=== PATIENT | female | born 1960 | race Caucasian/White ===

== ENCOUNTER 2016-12-14 17:22 | Emergency (ER) | payer OTHER ==
[2016-12-14 17:26] VITALS: BP 145/71; BMI 22.3
--- NOTE | 2016-12-14 17:51 | DR.GENAD ---
HPI - PCP Primary Care Physician: PATRICA - Complaint/Symptoms Chief Complaint Doctors Comments: Patient states that she is depressed and wants to go to [facility]. She denies being homocidal or suidical. She has been living int he a motel for the past week. She is no longer seeing her psychiatrist since he sold his practice but has been seeing the physician extenders of the person who took over the practice. Chief Complaint:: PT. STATES SHE HAS BEEN DEPRESSED AND WOULD LIKE TO GO TO [facility] IN [place]. PT. STATES IT HAS BEEN OVER A YEAR SINCE SHE HAS BEEN TO [facility] & SHE WAS SENT THERE FOR DEPRESSION. The office she presently goes to is not not concerned about her mental health but in seeing a certain number of patients daily. I discussed with patient the option of outpatient management at [facility] but she wants in patient care for depression. - Source History Provided: Patient - Mode of Arrival Mode of Arrival: Ambulatory - Timing Onset of Chief Complaint: 12/12/16 PMH - PMH Past Medical History: Yes Past Medical History: Anxiety, CHF, COPD, Coronary Artery Disease, Depression, [place] Past Surgical History: Yes Surgical History: Angioplasty/Stents, CABG/Valve Surgery, Ortho Surgery - Family History History of Family Medical Conditions: Yes Family Medical History: [place], Hypertension - Social History Does patient currently use any type of tobacco product: Yes Have you used tobacco products in the last 12 months: Yes Type of Tobacco Use: Cigarettes Does any household member use tobacco: No Alcohol Use: None Do you use any recreational Drugs:: No Lives With: Friend Lives Where: Home - infectious screening In the last 2 months have you had wt loss of >10#?: NO Have you had fever, night sweats or hemotysis?: No Have you traveled outside the country in the last 6 months?: No Isolation: Standard ROS - Review of Systems Constitutional: No Symptoms Reported Eyes: No Symptoms Reported ENTM: No Symptoms Reported Respiratoy: No Symptoms Reported Cardiovascular: No Symptoms Reported Gastrointestinal/Abdominal: No Symptoms Reported Genitourinary: No Symptoms Reported Neurological: No Symptoms Reported Musculoskeletal: No Symptoms Reported Integumentary: No Symptoms Reported Hematologic/Lymphatic: No Symptoms Reported Endocrine: No Symptoms Reported Psychiatric: See HPI, Depression. negative: Hallucinations, Excessive crying, Suicidal PE - Vital Signs Vitals: Temperature 97.9 F Pulse Rate 84 Respiratory Rate 16 Blood Pressure [Left Arm] 135/68 Blood Pressure [Right Arm] 128/70 Blood Pressure 145/71 O2 Sat by Pulse Oximetry 98 - General General Appearance: Alert - Head Head Exam: Normal Inspection - Eyes Eye exam: Normal Appearance, PERRL, EOMI - ENT ENT Exam: Normal Exam External Ear Exam: Normal External Inspection TM/Canal Exam: Bilateral Normal Nose Exam: Normal Nose Exam Mouth Exam: Normal Inspection Throat Exam: Normal Inspection - Neck Neck Exam: Normal Inspection, Full ROM - Chest Chest Inspection: Normal Inspection - Respiratory Respiratory Exam: Normal Lung Sounds Bilat Respiratory Exam: Bilateral Clear to Auscultation - Cardiovascular Cardiovascular Exam: Regular Rate, Normal Rhythm - Abdominal Exam Abdominal Exam: Normal Inspection Abdominal Tenderness: negative: RUQ, RLQ, LUQ, LLQ, Epigastrium, Suprapubic, Diffuse, Mild, Moderate, Severe, Other - Extremities Extremities Exam: Normal Inspection - Back Back Exam: Normal Inspection - Neurologic Neurological Exam: Alert, Oriented X3, CN II-XII Intact - Psychiatric Psychiatric Exam: Normal Affect - Skin Skin Exam: Warm, Dry, Intact Course - Treatment Treatment: Mental Health contacted came in to evaluate patient. Patient agreed to outpatient counseling; appointment given by crisis counselor. ROR - Labs Reviewed Laboratory Results Reviewed?: Yes (Urine positive for benzodiazepines and barbiturates) Result Diagrams: 12/14/16 18:30 12/14/16 18:30 Laboratory: WBC 5.6 X10^3/uL (3.6-10.0) 12/14/16 18:30 RBC 3.94 X10^6/uL (3.5-5.4) 12/14/16 18:30 Hgb 12.5 g/dL (12.0-16.0) 12/14/16 18:30 Hct 36.7 % (36.0-47.0) 12/14/16 18:30 MCV 93.1 fL (80.0-100.0) 12/14/16 18:30 MCH 31.8 pg (27.0-34.0) 12/14/16 18:30 MCHC 34.1 g/dL (33.0-35.0) 12/14/16 18:30 RDW 13.9 % (11.6-16.5) 12/14/16 18:30 Plt Count 194 X10^3/uL (150.0-450.0) 12/14/16 18:30 MPV 7.9 fL (7.4-11.0) 12/14/16 18:30 Neut % 34.4 % (42.0-75.0) L 12/14/16 18:30 Lymph % 56.2 % (21.0-51.0) H 12/14/16 18:30 [place] % 6.6 % (0.0-13.0) 12/14/16 18:30 Eos % 2.5 % (0.9-2.9) 12/14/16 18:30 Baso % 0.3 % (0.2-1.0) 12/14/16 18:30 Neut # 1.9 x10^3/uL (2.2-4.8) L 12/14/16 18:30 Lymph # 3.1 X10^3/uL (1.3-2.9) H 12/14/16 18:30 [place] # 0.4 x10^3/uL (0.3-0.8) 12/14/16 18:30 Eos # 0.1 x10^3/uL (0.0-0.2) 12/14/16 18:30 Baso # 0.0 X10^3/uL (0.0-0.1) 12/14/16 18:30 Absolute Nucleated RBC 0.1 /100WBC 12/14/16 18:30 Sodium 146 mmol/L (136-145) H 12/14/16 18:30 Corrected Sodium TNP 12/14/16 18:30 Potassium 3.4 mmol/L (3.5-5.1) L 12/14/16 18:30 Chloride 108 mmol/L (98-107) H 12/14/16 18:30 Carbon Dioxide 29.6 mmol/L (21-32) 12/14/16 18:30 BUN 9 mg/dL (7-18) 12/14/16 18:30 Creatinine 0.89 mg/dL (0.55-1.02) 12/14/16 18:30 Est GFR (MDRD) Af Amer > 60 (>60) 12/14/16 18:30 Est GFR (MDRD) Non-Af > 60 (>60) 12/14/16 18:30 Glucose 110 mg/dL (65-99) H 12/14/16 18:30 Calcium 8.6 mg/dL (8.5-10.1) 12/14/16 18:30 Corrected Calcium TNP 12/14/16 18:30 Total Bilirubin 0.20 mg/dL (0.2-1.0) 12/14/16 18:30 AST 20 Units/L (15-37) 12/14/16 18:30 ALT 24 Units/L (12-78) 12/14/16 18:30 Alkaline Phosphatase 122 Units/L (46-116) H 12/14/16 18:30 Total Protein 7.6 g/dL (6.4-8.2) 12/14/16 18:30 Albumin 3.6 g/dL (3.4-5.0) 12/14/16 18:30 Globulin 4.0 g/dL (2.5-4.5) 12/14/16 18:30 Albumin/Globulin Ratio 0.9 Ratio (1.1-2.1) L 12/14/16 18:30 Specimen Type Clean catch urine 12/14/16 19:39 Urine Color Yellow (YELLOW) 12/14/16 19:39 Urine Appearance Clear (CLEAR) 12/14/16 19:39 Urine pH 6.0 (5.0 - 8.0) 12/14/16 19:39 Ur Specific [place] 1.020 (1.000-1.030) 12/14/16 19:39 Urine Protein 2+ (NEGATIVE) 12/14/16 19:39 Urine Glucose (UA) Negative (NEGATIVE) 12/14/16 19:39 Urine Ketones Negative (NEGATIVE) 12/14/16 19:39 Urine Occult Blood Negative (NEGATIVE) 12/14/16 19:39 Urine Nitrite Negative (NEGATIVE) 12/14/16 19:39 Urine Bilirubin Negative (NEGATIVE) 12/14/16 19:39 Urine Urobilinogen Normal (NORMAL) 12/14/16 19:39 Ur Leukocyte Esterase 1+ (NEGATIVE) 12/14/16 19:39 Urine RBC None seen /HPF (NEGATIVE) 12/14/16 19:39 Urine WBC 02 - 05 /HPF (NEGATIVE) 12/14/16 19:39 Ur Squamous Epith Cells Moderate /HPF (NEGATIVE) 12/14/16 19:39 Ur Renal Epithelial Cell Rare /HPF (NEGATIVE) 12/14/16 19:39 Calcium Oxalate Crystal Moderate /HPF (NEGATIVE) 12/14/16 19:39 Amorphous Sediment Trace /HPF (NEGATIVE) 12/14/16 19:39 Urine Bacteria Negative /HPF (NEGATIVE) 12/14/16 19:39 Ur Culture Indicated? No/not indicated 12/14/16 19:39 Salicylates 5.4 mg/dL (2.8-20) 12/14/16 18:30 Urine Opiates Screen Negative (NEG=<300) 12/14/16 19:39 Urine Methadone Screen Negative (NEG=<300) 12/14/16 19:39 Acetaminophen < 10.0 ug/mL (10-30) L 12/14/16 18:30 Ur Barbiturates Screen Positive (NEG=<200) A 12/14/16 19:39 Ur Phencyclidine Scrn Negative (NEG=<25) 12/14/16 19:39 Ur Amphetamines Screen Negative (NEG=<1000) 12/14/16 19:39 U Benzodiazepines Scrn Positive (NEG=<200) A 12/14/16 19:39 Urine Cocaine Screen Negative (NEG=<300) 12/14/16 19:39 U Marijuana (THC) Screen Negative (NEG=<50) 12/14/16 19:39 Ethyl Alcohol mg/dL < 3 mg/dL (0-19.9) 12/14/16 18:30 - Diagnosis Discharge Problem: Depression (emotion) Qualifiers: Depression Type: unspecified Qualified Code(s): F32.9 - Major depressive disorder, single episode, unspecified - Discharge Plan Condition: Stable - Follow ups/Referrals Follow ups/Referrals: MILLY BURCIAGA [Primary Care Provider] - 3 days - Instructions
[2016-12-14 18:55] LABS: BASOPHILS % (AUTO) 0.3 % (0.2-1.0); EOSINOPHILS # (AUTO) 0.1 x10^3/uL (0.0-0.2); EOSINOPHILS % (AUTO) 2.5 % (0.9-2.9); HEMATOCRIT 36.7 % (36.0-47.0); HEMOGLOBIN 12.5 g/dL (12.0-16.0); LYMPHOCYTES # (AUTO) 3.1 X10^3/uL (1.3-2.9); LYMPHOCYTES % (AUTO) 56.2 % (21.0-51.0); MEAN CORPUSCULAR HEMOGLOBIN 31.8 pg (27.0-34.0); MEAN CORPUSCULAR HGB CONC 34.1 g/dL (33.0-35.0); MEAN CORPUSCULAR VOLUME 93.1 fL (80.0-100.0); MEAN PLATELET VOLUME 7.9 fL (7.4-11.0); MONOCYTES # (AUTO) 0.4 x10^3/uL (0.3-0.8); MONOCYTES % (AUTO) 6.6 % (0.0-13.0); NEUTROPHILS # (AUTO) 1.9 x10^3/uL (2.2-4.8); NEUTROPHILS % (AUTO) 34.4 % (42.0-75.0); PLATELET COUNT 194 X10^3/uL (150.0-450.0); RED BLOOD COUNT 3.94 X10^6/uL (3.5-5.4); RED CELL DISTRIBUTION WIDTH 13.9 % (11.6-16.5); WHITE BLOOD COUNT 5.6 X10^3/uL (3.6-10.0)
[2016-12-14 19:10] LABS: SALICYLATE 5.4 mg/dL (2.8-20)
[2016-12-14 19:12] LABS: ALANINE AMINOTRANSFERASE 24 Units/L (12-78); ALBUMIN 3.6 g/dL (3.4-5.0); ALKALINE PHOSPHATASE 122 Units/L (46-116); ASPARTATE AMINO TRANSFERASE 20 Units/L (15-37); BLOOD ALCOHOL < 3 mg/dL (0-19.9); BLOOD UREA NITROGEN 9 mg/dL (7-18); CALCIUM 8.6 mg/dL (8.5-10.1); CARBON DIOXIDE 29.6 mmol/L (21-32); CHLORIDE 108 mmol/L (98-107); CREATININE 0.89 mg/dL (0.55-1.02); GLUCOSE 110 mg/dL (65-99); SODIUM 146 mmol/L (136-145); TOTAL PROTEIN 7.6 g/dL (6.4-8.2); eGFR BLACK RACES > 60 (>60); eGFR NON BLACK RACES > 60 (>60)
[2016-12-14 19:15] LABS: ACETAMINOPHEN < 10.0 ug/mL (10-30)
[2016-12-14 20:12] LABS: BILIRUBIN,URINE NEGATIVE (NEGATIVE); BLOOD/HEMOGLOBIN,URINE NEGATIVE (NEGATIVE); GLUCOSE, URINE NEGATIVE (NEGATIVE); KETONES,URINE NEGATIVE (NEGATIVE); LEUKOCYTE ESTERASE ,URINE 1+ (NEGATIVE); NITRITES,URINE NEGATIVE (NEGATIVE); PROTEIN,URINE 2+ (NEGATIVE); UROBILINOGEN,URINE NORMAL (NORMAL)
[2016-12-14 20:13] LABS: APPEARANCE,URINE CLEAR (CLEAR); COLOR,URINE YELLOW (YELLOW)
[2016-12-14 20:34] LABS: RBC,URINE NONE SEEN /HPF (NEGATIVE); SQUAMOUS EPITHELIAL CELL,UR MODERATE /HPF (NEGATIVE)
[2016-12-14 20:35] LABS: AMORPHOUS SEDIMENT,UR TRACE /HPF (NEGATIVE); BACTERIA,URINE NEGATIVE /HPF (NEGATIVE); RENAL EPITHELIAL CELLS,URINE RARE /HPF (NEGATIVE)
[2016-12-14 20:36] LABS: CALCIUM OXALATE CRYSTALS,UR MODERATE /HPF (NEGATIVE)
== END 2016-12-14 21:06 | disposition home or self-care (01) ==
LOC: ER 17:29
DX: F32.89 Other specified depressive episodes (principal)
CPT/HCPCS: 36415; 80053; 80307; 80320; 81001; 85025; 93005; 93010; 99283; 99285; G0434; G6038; G6039; G6040

== ENCOUNTER 2016-12-18 12:41 | Observation (INO) | payer OTHER ==
[2016-12-18 12:49] VITALS: BMI 25.7
--- NOTE | 2016-12-18 12:59 | DR.GENAD ---
HPI - PCP Primary Care Physician: Jaime - HPI Comment HPI Comment: PRECORDIAL CHEST PRESSURE RADIATING TO THE BACK TIMES ONE HOUR. PAIN ASSOCIATED WITH SOB, NAUSEA AND WEAKNESS. NO FEVER. HAVE NON PRODUCTIVE COUGH. TOOK NTG TIMES 2 S/L WITHOUT RELIEF. - Complaint/Symptoms Chief Complaint Doctors Comments: CHEST PAIN FOR ONE HOUR. Chief Complaint:: pt is c/o chest pain that started 45 min ago - Nurses notes reviewed Nurses Notes Review: Yes - Source History Provided: Patient - Mode of Arrival Mode of Arrival: Stretcher - Timing Onset of Chief Complaint: 12/18/16 Came on: Suddenly - Duration Duration: Constant Duration: Hours - Severity Severity: Moderate PMH - PMH Past Medical History: Yes Past Medical History: Anxiety, CHF, COPD, Coronary Artery Disease, Depression, [place] Past Surgical History: Yes Surgical History: Angioplasty/Stents, CABG/Valve Surgery, Ortho Surgery - Family History History of Family Medical Conditions: Yes Family Medical History: [place], Hypertension - Social History Does patient currently use any type of tobacco product: Yes Have you used tobacco products in the last 12 months: Yes Type of Tobacco Use: Cigarettes Does any household member use tobacco: Yes Alcohol Use: None Do you use any recreational Drugs:: No Lives With: Family Lives Where: Home - infectious screening In the last 2 months have you had wt loss of >10#?: NO Have you had fever, night sweats or hemotysis?: No Have you traveled outside the country in the last 6 months?: No Isolation: Standard ROS - Review of Systems Constitutional: Weakness, Fatigue. negative: Chills, Diaphoresis, Fever, Loss of Appetite Eyes: No Symptoms Reported. negative: Eye Pain, Discharge ENTM: No Symptoms Reported. negative: Ear Pain, Nose Pain, Nose Discharge, Nose Congestion, Throat Pain Respiratoy: Non-Productive Cough, Short of Breath. negative: Wheezing, Hemoptysis Cardiovascular: Chest Pain. negative: Edema, Palpitations, Syncope Gastrointestinal/Abdominal: No Symptoms Reported, Nausea. negative: Diarrhea, Vomiting Genitourinary: No Symptoms Reported. negative: Dysuria, Frequency, Hematuria Neurological: Weakness. negative: Headache, Dizziness Musculoskeletal: Muscle Pain Integumentary: No Symptoms Reported Hematologic/Lymphatic: No Symptoms Reported Endocrine: No Symptoms Reported All Other Systems: Reviewed and Negative PE - Vital Signs Vitals: Temperature 98.3 F Pulse Rate 97 Respiratory Rate 20 Blood Pressure [Left Arm] 135/68 Blood Pressure [Right Arm] 128/70 Blood Pressure 143/61 O2 Sat by Pulse Oximetry 98 - General Limitations: No Limitations General Appearance: Alert - Head Head Exam: Normal Inspection - Eyes Eye exam: Normal Appearance - ENT ENT Exam: Normal External Ear Exam External Ear Exam: Normal External Inspection TM/Canal Exam: Bilateral Normal Nose Exam: Normal Nose Exam Mouth Exam: Normal Inspection Throat Exam: Normal Inspection - Neck Neck Exam: Trachea Midline - Chest Chest Inspection: Symmetric Chest Wall Rise - Respiratory Respiratory Exam: Normal Lung Sounds Bilat Respiratory Exam: Bilateral Clear to Auscultation - Cardiovascular Cardiovascular Exam: Regular Rate, Normal Rhythm, Normal Heart Sounds - Abdominal Exam Abdominal Exam: Normal Bowel Sounds, Soft. negative: Tenderness - Extremities Extremities Exam: Normal Inspection - Back Back Exam: Paraspinal Tenderness - Neurologic Neurological Exam: Alert, Oriented X3 - Psychiatric Psychiatric Exam: Normal Affect, Normal Mood - Skin Skin Exam: Normal Color MDM - Differential Diagnosis Differential Diagnosis: CHEST PAIN, PNEUMONIA, PNEUMOTHORAX, PULMONARY EMBOLISM. CHF. Course - Treatment Treatment: SEE ORDERS - Consultation Consultation Comments: DISCUS PATIENT WITH DR. TAVERAS. HE WILL ADMIT PATIENT. - Education/Counseling Education/Counseling: Patient, Education Educated On: Treatment, Diagnosis ROR - Labs Reviewed Laboratory Results Reviewed?: Yes Result Diagrams: 12/18/16 13:22 12/18/16 13:22 Laboratory: WBC 5.4 X10^3/uL (3.6-10.0) 12/18/16 13:22 RBC 4.08 X10^6/uL (3.5-5.4) 12/18/16 13:22 Hgb 12.8 g/dL (12.0-16.0) 12/18/16 13:22 Hct 37.9 % (36.0-47.0) 12/18/16 13:22 MCV 92.8 fL (80.0-100.0) 12/18/16 13:22 MCH 31.3 pg (27.0-34.0) 12/18/16 13:22 MCHC 33.8 g/dL (33.0-35.0) 12/18/16 13:22 RDW 13.9 % (11.6-16.5) 12/18/16 13:22 Plt Count 185 X10^3/uL (150.0-450.0) 12/18/16 13:22 MPV 8.0 fL (7.4-11.0) 12/18/16 13:22 Neut % 57.5 % (42.0-75.0) 12/18/16 13:22 Lymph % 37.6 % (21.0-51.0) 12/18/16 13:22 [place] % 3.8 % (0.0-13.0) 12/18/16 13:22 Eos % 0.7 % (0.9-2.9) L 12/18/16 13:22 Baso % 0.4 % (0.2-1.0) 12/18/16 13:22 Neut # 3.1 x10^3/uL (2.2-4.8) 12/18/16 13:22 Lymph # 2.0 X10^3/uL (1.3-2.9) 12/18/16 13:22 [place] # 0.2 x10^3/uL (0.3-0.8) L 12/18/16 13:22 Eos # 0.0 x10^3/uL (0.0-0.2) 12/18/16 13:22 Baso # 0.0 X10^3/uL (0.0-0.1) 12/18/16 13:22 Absolute Nucleated RBC 0.0 /100WBC 12/18/16 13:22 D-Dimer 1130 ng/mL (0-400) H* 12/18/16 13:22 Sodium 144 mmol/L (136-145) 12/18/16 13:22 Corrected Sodium 145 mmol/L (136-145) 12/18/16 13:22 Potassium 3.6 mmol/L (3.5-5.1) 12/18/16 13:22 Chloride 108 mmol/L (98-107) H 12/18/16 13:22 Carbon Dioxide 27.6 mmol/L (21-32) 12/18/16 13:22 BUN 17 mg/dL (7-18) 12/18/16 13:22 Creatinine 1.08 mg/dL (0.55-1.02) H 12/18/16 13:22 Est GFR (MDRD) Af Amer > 60 (>60) 12/18/16 13:22 Est GFR (MDRD) Non-Af 56 (>60) L 12/18/16 13:22 Glucose 132 mg/dL (65-99) H 12/18/16 13:22 Calcium 9.0 mg/dL (8.5-10.1) 12/18/16 13:22 Corrected Calcium TNP 12/18/16 13:22 Total Bilirubin 0.30 mg/dL (0.2-1.0) 12/18/16 13:22 AST 14 Units/L (15-37) L 12/18/16 13:22 ALT 19 Units/L (12-78) 12/18/16 13:22 Alkaline Phosphatase 110 Units/L (46-116) 12/18/16 13:22 Creatine Kinase 88 Units/L (26-192) 12/18/16 13:22 CK-MB (CK-2) 1.5 ng/mL (0-4.0) 12/18/16 13:22 CK/CKMB % Calc 1.7 % (<4) 12/18/16 13:22 Troponin I < 0.02 ng/mL (0-1.5) 12/18/16 13:22 B-Natriuretic Peptide 147 pg/mL (0-79) H 12/18/16 13:22 Total Protein 7.5 g/dL (6.4-8.2) 12/18/16 13:22 Albumin 3.5 g/dL (3.4-5.0) 12/18/16 13:22 Globulin 4.0 g/dL (2.5-4.5) 12/18/16 13:22 Albumin/Globulin Ratio 0.9 Ratio (1.1-2.1) L 12/18/16 13:22 Specimen Type Clean catch urine 12/18/16 13:52 Urine Color Pale yellow (YELLOW) 12/18/16 13:52 Urine Appearance Clear (CLEAR) 12/18/16 13:52 Urine pH 7.0 (5.0 - 8.0) 12/18/16 13:52 Ur Specific [place] 1.010 (1.000-1.030) 12/18/16 13:52 Urine Protein Negative (NEGATIVE) 12/18/16 13:52 Urine Glucose (UA) Negative (NEGATIVE) 12/18/16 13:52 Urine Ketones Negative (NEGATIVE) 12/18/16 13:52 Urine Occult Blood Negative (NEGATIVE) 12/18/16 13:52 Urine Nitrite Negative (NEGATIVE) 12/18/16 13:52 Urine Bilirubin Negative (NEGATIVE) 12/18/16 13:52 Urine Urobilinogen Normal (NORMAL) 12/18/16 13:52 Ur Leukocyte Esterase Negative (NEGATIVE) 12/18/16 13:52 Urine RBC None seen /HPF (NEGATIVE) 12/18/16 13:52 Urine WBC None seen /HPF (NEGATIVE) 12/18/16 13:52 Ur Squamous Epith Cells Few /HPF (NEGATIVE) 12/18/16 13:52 Urine Bacteria Negative /HPF (NEGATIVE) 12/18/16 13:52 Ur Culture Indicated? No/not indicated 12/18/16 13:52 Urine Opiates Screen Negative (NEG=<300) 12/18/16 13:52 Urine Methadone Screen Negative (NEG=<300) 12/18/16 13:52 Ur Barbiturates Screen Negative (NEG=<200) 12/18/16 13:52 Ur Phencyclidine Scrn Negative (NEG=<25) 12/18/16 13:52 Ur Amphetamines Screen Negative (NEG=<1000) 12/18/16 13:52 U Benzodiazepines Scrn Positive (NEG=<200) A 12/18/16 13:52 Urine Cocaine Screen Negative (NEG=<300) 12/18/16 13:52 U Marijuana (THC) Screen Negative (NEG=<50) 12/18/16 13:52 - XRAY XRAY Interpreted by: Radiologist XRAY Findings: report discuss with patient. - EKG Rhythm: NSR (ekg noted) - Diagnosis Discharge Problem: Chest pain - Discharge Plan Disposition: 09 ADMITTED INPATIENT Condition: Stable - Follow ups/Referrals - Instructions
[2016-12-18] MEDS ORDERED: PEPCID 20 MG IV PREMIX* 20 MG/50 ML BAG IV ONE ×2 (13:11→13:13)
[2016-12-18] MEDS ORDERED: NS 1000 ML 1,000 ML ONE (13:14)
[2016-12-18] MEDS ORDERED: TORADOL 30 MG VIAL IVP ONE (13:18)
[2016-12-18] MEDS ORDERED: TORADOL 30 MG VIAL ONE (13:25)
[2016-12-18] MEDS: NS 1000 ML 1,000 ML IV SCH ×2 (13:34→23:24)
[2016-12-18 13:47] LABS: BASOPHILS % (AUTO) 0.4 % (0.2-1.0); EOSINOPHILS % (AUTO) 0.7 % (0.9-2.9); HEMATOCRIT 37.9 % (36.0-47.0); HEMOGLOBIN 12.8 g/dL (12.0-16.0); LYMPHOCYTES % (AUTO) 37.6 % (21.0-51.0); MEAN CORPUSCULAR HEMOGLOBIN 31.3 pg (27.0-34.0); MEAN CORPUSCULAR HGB CONC 33.8 g/dL (33.0-35.0); MEAN CORPUSCULAR VOLUME 92.8 fL (80.0-100.0); MONOCYTES # (AUTO) 0.2 x10^3/uL (0.3-0.8); MONOCYTES % (AUTO) 3.8 % (0.0-13.0); NEUTROPHILS # (AUTO) 3.1 x10^3/uL (2.2-4.8); NEUTROPHILS % (AUTO) 57.5 % (42.0-75.0); PLATELET COUNT 185 X10^3/uL (150.0-450.0); RED BLOOD COUNT 4.08 X10^6/uL (3.5-5.4); RED CELL DISTRIBUTION WIDTH 13.9 % (11.6-16.5); WHITE BLOOD COUNT 5.4 X10^3/uL (3.6-10.0)
--- NOTE | 2016-12-18 13:50 | RAD ---
Examination: Chest x-ray. Clinical history: Chest pain. Technique: A single portable AP view of the chest was obtained. Comparison: 04/14/2016. Findings: The patient's chin partially obscures visualization of the lung apices bilaterally. There are multiple sternal wires and surgical clips in the mediastinum indicating a prior CABG. A Me diPort type catheter is seen overlying the right hemithorax with the tip terminating in the superior vena cava. A pacemaker/defibrillator device is seen overlying the left hemithorax with the leads te rminating in the right atrium and right ventricle. Monitor leads are seen overlying the chest. The cardiac silhouette appears borderline enlarged. The cardiac silhouette size may be accentuated b y the AP projection. No pneumothorax or pleural effusion is noted. The lungs appear clear. There are postsurgical changes from fusion surgery which are incompletely visualized in the cervical spine. No acute osseous abnormality is noted. Impression: 1. The cardiac silhouette appears borderline enlarged. The cardiac silhouette size may be accentuate d by the AP projection. Reported By:
[2016-12-18 14:05] LABS: BLOOD UREA NITROGEN 17 mg/dL (7-18); CARBON DIOXIDE 27.6 mmol/L (21-32); CHLORIDE 108 mmol/L (98-107); COR NA(FOR HYPERGLY) 145 mmol/L (136-145); CREATININE 1.08 mg/dL (0.55-1.02); GLUCOSE 132 mg/dL (65-99); SODIUM 144 mmol/L (136-145); TROPONIN I < 0.02 ng/mL (0-1.5); eGFR BLACK RACES > 60 (>60); eGFR NON BLACK RACES 56 (>60)
[2016-12-18 14:06] LABS: B-TYPE NATRIURETIC PEPTIDE 147 pg/mL (0-79)
[2016-12-18 14:09] LABS: ALANINE AMINOTRANSFERASE 19 Units/L (12-78); ALBUMIN 3.5 g/dL (3.4-5.0); ALKALINE PHOSPHATASE 110 Units/L (46-116); ASPARTATE AMINO TRANSFERASE 14 Units/L (15-37); CKMB % 1.7 % (<4); CREATINE KINASE 88 Units/L (26-192); CREATINE KINASE MB 1.5 ng/mL (0-4.0); TOTAL PROTEIN 7.5 g/dL (6.4-8.2)
[2016-12-18 14:16] LABS: BILIRUBIN,URINE NEGATIVE (NEGATIVE); BLOOD/HEMOGLOBIN,URINE NEGATIVE (NEGATIVE); GLUCOSE, URINE NEGATIVE (NEGATIVE); KETONES,URINE NEGATIVE (NEGATIVE); LEUKOCYTE ESTERASE ,URINE NEGATIVE (NEGATIVE); NITRITES,URINE NEGATIVE (NEGATIVE); PROTEIN,URINE NEGATIVE (NEGATIVE); UROBILINOGEN,URINE NORMAL (NORMAL)
[2016-12-18 14:40] LABS: APPEARANCE,URINE CLEAR (CLEAR); BACTERIA,URINE NEGATIVE /HPF (NEGATIVE); COLOR,URINE PALE YELLOW (YELLOW); RBC,URINE NONE SEEN /HPF (NEGATIVE); SQUAMOUS EPITHELIAL CELL,UR FEW /HPF (NEGATIVE)
[2016-12-18] MEDS ORDERED: PHENERGAN INJ 25 MG IV ONE (14:52)
[2016-12-18] MEDS ORDERED: DEMEROL INJ IVP ONE (14:52)
[2016-12-18] MEDS ORDERED: DEMEROL INJ ONE (14:53)
[2016-12-18] MEDS ORDERED: PHENERGAN INJ 25 MG ONE (14:54)
[2016-12-18] MEDS ORDERED: NS 100 ML IV 100 ML IV ONE (14:54)
--- NOTE | 2016-12-18 15:48 | CT ---
History: Chest pain and elevated D-dimer Study: CTA chest with contrast. Axial and sagittal and coronal MIPS of the pulmonary arteries were d isplayed. Comparison: March 04 1060 Findings : There is hyperinflation as before with centrilobular emphysema, moderately severe. There is no lung consolidation or pleural effusion. The heart is mildly enlarged status post sternotomy. There are pa cemaker wire leads from the left subclavian vein. The main pulmonary artery measures over 3 centimet ers diameter. No pulmonary embolus is demonstrated. The aorta is unremarkable. The visualized upper abdomen is unremarkable. Impression: 1. No evidence for pulmonary embolus 2. Centrilobular emphysema 3. Cardiomegaly and enlarged central pulmonary arteries suggestive of pulmonary hypertension Reported By:
[2016-12-18] MEDS ORDERED: NITROSTAT SL PRN (18:03)
[2016-12-18] MEDS ORDERED: TORADOL 30 MG VIAL IVP PRN (18:06)
[2016-12-18] MEDS ORDERED: ZOFRAN INJ 4 MG VIAL IVP ONE (18:07)
[2016-12-18 21:47] LABS: CKMB % 1.5 % (<4); CREATINE KINASE 80 Units/L (26-192); CREATINE KINASE MB 1.2 ng/mL (0-4.0); TROPONIN I < 0.02 ng/mL (0-1.5)
[2016-12-19 01:15] VITALS: BP 131/66
== END 2016-12-19 03:10 | disposition left against medical advice (07) ==
LOC: ER 12:41 → OBS 17:59
PROVIDERS: ADMIT Internal Medicine; ATTEND Internal Medicine
DX: R07.2 Precordial pain (principal); R94.31 Abnormal electrocardiogram [ECG] [EKG]; R06.02 Shortness of breath; M54.89 Other dorsalgia; M53.1 Cervicobrachial syndrome; R11.0 Nausea; I25.10 Atherosclerotic heart disease of native coronary artery without angina pectoris; J44.9 Chronic obstructive pulmonary disease, unspecified; I51.7 Cardiomegaly; I27.2 Other secondary pulmonary hypertension; J43.2 Centrilobular emphysema; R74.8 Abnormal levels of other serum enzymes; R94.30 Abnormal result of cardiovascular function study, unspecified
CPT/HCPCS: 36415; 36591; 71010; 71275; 80053; 80307; 81001; 82550; 82553; 83880; 84484; 85025; 85378; 93005; 93010; 94760; 96365; 96367; 96374; 96375; 99284; A4222; S0028; G0378; G0434; J1885; J2175; J2550

== ENCOUNTER 2017-01-13 15:55 | Observation (INO) | payer OTHER ==
[2017-01-13 16:52] LABS: BASOPHILS % (AUTO) 0.6 % (0.2-1.0); EOSINOPHILS # (AUTO) 0.1 x10^3/uL (0.0-0.2); HEMATOCRIT 40.3 % (36.0-47.0); HEMOGLOBIN 13.9 g/dL (12.0-16.0); LYMPHOCYTES # (AUTO) 2.9 X10^3/uL (1.3-2.9); LYMPHOCYTES % (AUTO) 37.7 % (21.0-51.0); MEAN CORPUSCULAR HEMOGLOBIN 32.2 pg (27.0-34.0); MEAN CORPUSCULAR HGB CONC 34.5 g/dL (33.0-35.0); MEAN CORPUSCULAR VOLUME 93.3 fL (80.0-100.0); MEAN PLATELET VOLUME 8.5 fL (7.4-11.0); MONOCYTES # (AUTO) 0.5 x10^3/uL (0.3-0.8); MONOCYTES % (AUTO) 6.3 % (0.0-13.0); NEUTROPHILS # (AUTO) 4.1 x10^3/uL (2.2-4.8); NEUTROPHILS % (AUTO) 54.4 % (42.0-75.0); PLATELET COUNT 193 X10^3/uL (150.0-450.0); RED BLOOD COUNT 4.32 X10^6/uL (3.5-5.4); RED CELL DISTRIBUTION WIDTH 13.9 % (11.6-16.5); WHITE BLOOD COUNT 7.6 X10^3/uL (3.6-10.0)
--- NOTE | 2017-01-13 16:52 | RAD ---
HISTORY: 56-year-old female with chest pain. Study: Single frontal view of the chest. Comparison: CT thorax and chest radiograph December 18, 2016. Findings: Surgical and support devices are stable. The trachea is midline. The cardiac silhouette is staple. No focal consolidation, effusion or pneu mothorax. The bony thorax is unremarkable. IMPRESSION: 1. No acute cardiopulmonary disease. Reported By:
[2017-01-13 16:55] LABS: BILIRUBIN,URINE NEGATIVE (NEGATIVE); BLOOD/HEMOGLOBIN,URINE NEGATIVE (NEGATIVE); GLUCOSE, URINE NEGATIVE (NEGATIVE); KETONES,URINE NEGATIVE (NEGATIVE); LEUKOCYTE ESTERASE ,URINE NEGATIVE (NEGATIVE); NITRITES,URINE NEGATIVE (NEGATIVE); PROTEIN,URINE NEGATIVE (NEGATIVE); UROBILINOGEN,URINE NORMAL (NORMAL)
[2017-01-13 17:04] LABS: APPEARANCE,URINE CLEAR (CLEAR); BACTERIA,URINE TRACE /HPF (NEGATIVE); COLOR,URINE PALE YELLOW (YELLOW); RBC,URINE 0-2 /HPF (NEGATIVE); SQUAMOUS EPITHELIAL CELL,UR FEW /HPF (NEGATIVE)
[2017-01-13 17:09] LABS: BLOOD UREA NITROGEN 8 mg/dL (7-18); CALCIUM 9.2 mg/dL (8.5-10.1); CARBON DIOXIDE 26.2 mmol/L (21-32); CHLORIDE 108 mmol/L (98-107); CREATININE 0.93 mg/dL (0.55-1.02); GLUCOSE 105 mg/dL (65-99); SODIUM 144 mmol/L (136-145); TROPONIN I < 0.02 ng/mL (0-1.5); eGFR BLACK RACES > 60 (>60); eGFR NON BLACK RACES > 60 (>60)
[2017-01-13 17:12] LABS: D DIMER 90.5 ng/mL (0-400)
[2017-01-13 17:13] LABS: ALANINE AMINOTRANSFERASE 46 Units/L (12-78); ALBUMIN 3.6 g/dL (3.4-5.0); ALKALINE PHOSPHATASE 104 Units/L (46-116); ASPARTATE AMINO TRANSFERASE 19 Units/L (15-37); CKMB % 1.8 % (<4); CREATINE KINASE 57 Units/L (26-192); MAGNESIUM 1.9 mg/dL (1.7-2.9); TOTAL PROTEIN 7.6 g/dL (6.4-8.2)
[2017-01-13] MEDS ORDERED: PHENERGAN INJ 25 MG IV ONE (17:58)
[2017-01-13] MEDS ORDERED: DEMEROL INJ IVP ONE (17:58)
--- NOTE | 2017-01-13 18:01 | DR.GENAD ---
HPI - PCP Primary Care Physician: gary - HPI Comment HPI Comment: PRECORDIAL CHEST PAIN NON RADIATING TO THE BACK ASSOCIATED WITH WEAKNESS SOB FOR 6 HOURS. 4 S/L NTG DID NOT RELIEVE. EMS GAVE CHEWABLE ASA 81MG TIMES 4. HAVE CAD S/P STENT PLACEMENT. NO FEVER. - Complaint/Symptoms Chief Complaint Doctors Comments: CHEST PAIN, SOB. Chief Complaint:: patient stated she started having chest pain 6 hours ago. she stated she took 4 nitros and ems gave her 81 mg asa times 4. - Nurses notes reviewed Nurses Notes Review: Yes - Source History Provided: Patient, EMS - Mode of Arrival Mode of Arrival: EMS - Timing Onset of Chief Complaint: 01/13/17 Came on: Suddenly - Duration Duration: Constant Duration: Hours - Severity Severity: Moderate PMH - PMH Past Medical History: Yes Past Medical History: Anxiety, CHF, COPD, Coronary Artery Disease, Depression, [place] Past Surgical History: Yes Surgical History: Angioplasty/Stents, CABG/Valve Surgery, Ortho Surgery - Family History History of Family Medical Conditions: Yes Family Medical History: [place], Hypertension - Social History Does patient currently use any type of tobacco product: No Have you used tobacco products in the last 12 months: No Type of Tobacco Use: None Does any household member use tobacco: No Alcohol Use: None Do you use any recreational Drugs:: No Lives With: Family Lives Where: Home - infectious screening In the last 2 months have you had wt loss of >10#?: NO Have you had fever, night sweats or hemotysis?: No Have you traveled outside the country in the last 6 months?: No Isolation: Standard ROS - Review of Systems Constitutional: No Symptoms Reported, Weakness, Fatigue. negative: Chills, Diaphoresis, Fever, Loss of Appetite Eyes: No Symptoms Reported. negative: Eye Pain, Discharge ENTM: No Symptoms Reported. negative: Ear Pain, Nose Discharge, Nose Congestion , Throat Pain Respiratoy: Non-Productive Cough, Short of Breath. negative: Productive Cough, Wheezing, Hemoptysis Cardiovascular: Chest Pain. negative: Edema, Palpitations, Syncope Gastrointestinal/Abdominal: Nausea. negative: Abdominal Pain, Constipation, Diarrhea, Vomiting Genitourinary: No Symptoms Reported. negative: Dysuria, Frequency, Hematuria Neurological: Headache, Weakness, Dizziness Musculoskeletal: Muscle Pain Integumentary: No Symptoms Reported Hematologic/Lymphatic: Easy Bruising Endocrine: No Symptoms Reported All Other Systems: Reviewed and Negative PE - Vital Signs Vitals: Temperature 98.6 F Pulse Rate 71 Respiratory Rate 18 Blood Pressure [Left Arm] 131/66 Blood Pressure [Right Arm] 128/70 Blood Pressure 162/75 O2 Sat by Pulse Oximetry 98 - General Limitations: No Limitations General Appearance: Alert - Head Head Exam: Normal Inspection - Eyes Eye exam: Normal Appearance - ENT ENT Exam: Normal Oropharynx, Normal External Ear Exam, TM's Normal Bilaterally External Ear Exam: Normal External Inspection TM/Canal Exam: Bilateral Normal Nose Exam: Normal Nose Exam Mouth Exam: Normal Inspection Throat Exam: Normal Inspection - Neck Neck Exam: Trachea Midline. negative: Tenderness, Meningismus, Lymphadenopathy - Chest Chest Inspection: Symmetric Chest Wall Rise. negative: Tenderness - Respiratory Respiratory Exam: Normal Lung Sounds Bilat. negative: Chest Wall Tenderness Respiratory Exam: Bilateral Rhonchi, Lower Rhonchi - Cardiovascular Cardiovascular Exam: Regular Rate, Normal Rhythm, Normal Heart Sounds - Abdominal Exam Abdominal Exam: Normal Bowel Sounds, Soft. negative: Tenderness - Extremities Extremities Exam: Normal Inspection - Back Back Exam: Normal Inspection - Neurologic Neurological Exam: Alert, Oriented X3, CN II-XII Intact, Reflexes Normal. negative: Motor Sensory Deficit - Psychiatric Psychiatric Exam: Normal Affect, Normal Mood - Skin Skin Exam: Normal Color MDM - Differential Diagnosis Differential Diagnosis: CHEST PAIN, CAD, CHEST WALL PAIN, PNEUMONIA, PNEUMOTHORAX, PE Course - Treatment Treatment: SEE ORDERS - Education/Counseling Education/Counseling: Patient, Education Educated On: Treatment, Diagnosis, Needs for Follow Up ROR - Labs Reviewed Laboratory Results Reviewed?: Yes Result Diagrams: 01/14/17 05:45 01/14/17 05:45 Laboratory: WBC 7.6 X10^3/uL (3.6-10.0) 01/13/17 16:10 RBC 4.32 X10^6/uL (3.5-5.4) 01/13/17 16:10 Hgb 13.9 g/dL (12.0-16.0) 01/13/17 16:10 Hct 40.3 % (36.0-47.0) 01/13/17 16:10 MCV 93.3 fL (80.0-100.0) 01/13/17 16:10 MCH 32.2 pg (27.0-34.0) 01/13/17 16:10 MCHC 34.5 g/dL (33.0-35.0) 01/13/17 16:10 RDW 13.9 % (11.6-16.5) 01/13/17 16:10 Plt Count 193 X10^3/uL (150.0-450.0) 01/13/17 16:10 MPV 8.5 fL (7.4-11.0) 01/13/17 16:10 Neut % 54.4 % (42.0-75.0) 01/13/17 16:10 Lymph % 37.7 % (21.0-51.0) 01/13/17 16:10 [place] % 6.3 % (0.0-13.0) 01/13/17 16:10 Eos % 1.0 % (0.9-2.9) 01/13/17 16:10 Baso % 0.6 % (0.2-1.0) 01/13/17 16:10 Neut # 4.1 x10^3/uL (2.2-4.8) 01/13/17 16:10 Lymph # 2.9 X10^3/uL (1.3-2.9) 01/13/17 16:10 [place] # 0.5 x10^3/uL (0.3-0.8) 01/13/17 16:10 Eos # 0.1 x10^3/uL (0.0-0.2) 01/13/17 16:10 Baso # 0.0 X10^3/uL (0.0-0.1) 01/13/17 16:10 Absolute Nucleated RBC 0.1 /100WBC 01/13/17 16:10 INR Target Range - 01/13/17 16:36 INR 0.92 (0.8-1.3) 01/13/17 16:36 PTT 25.5 SECONDS (22.9-36.5) 01/13/17 16:36 PTT Comment - 01/13/17 16:36 D-Dimer 90.5 ng/mL (0-400) 01/13/17 16:10 Sodium 144 mmol/L (136-145) 01/13/17 16:10 Corrected Sodium TNP 01/13/17 16:10 Potassium 3.7 mmol/L (3.5-5.1) 01/13/17 16:10 Chloride 108 mmol/L (98-107) H 01/13/17 16:10 Carbon Dioxide 26.2 mmol/L (21-32) 01/13/17 16:10 BUN 8 mg/dL (7-18) 01/13/17 16:10 Creatinine 0.93 mg/dL (0.55-1.02) 01/13/17 16:10 Est GFR (MDRD) Af Amer > 60 (>60) 01/13/17 16:10 Est GFR (MDRD) Non-Af > 60 (>60) 01/13/17 16:10 Glucose 105 mg/dL (65-99) H 01/13/17 16:10 Calcium 9.2 mg/dL (8.5-10.1) 01/13/17 16:10 Corrected Calcium TNP 01/13/17 16:10 Magnesium 1.9 mg/dL (1.7-2.9) 01/13/17 16:10 Total Bilirubin 0.20 mg/dL (0.2-1.0) 01/13/17 16:10 AST 19 Units/L (15-37) 01/13/17 16:10 ALT 46 Units/L (12-78) 01/13/17 16:10 Alkaline Phosphatase 104 Units/L (46-116) 01/13/17 16:10 Creatine Kinase 57 Units/L (26-192) 01/13/17 16:10 CK-MB (CK-2) 1.0 ng/mL (0-4.0) 01/13/17 16:10 CK/CKMB % Calc 1.8 % (<4) 01/13/17 16:10 Troponin I < 0.02 ng/mL (0-1.5) 01/13/17 16:10 Total Protein 7.6 g/dL (6.4-8.2) 01/13/17 16:10 Albumin 3.6 g/dL (3.4-5.0) 01/13/17 16:10 Globulin 4.0 g/dL (2.5-4.5) 01/13/17 16:10 Albumin/Globulin Ratio 0.9 Ratio (1.1-2.1) L 01/13/17 16:10 Specimen Type Clean catch urine 01/13/17 16:34 Urine Color Pale yellow (YELLOW) 01/13/17 16:34 Urine Appearance Clear (CLEAR) 01/13/17 16:34 Urine pH 7.0 (5.0 - 8.0) 01/13/17 16:34 Ur Specific [place] 1.005 (1.000-1.030) 01/13/17 16:34 Urine Protein Negative (NEGATIVE) 01/13/17 16:34 Urine Glucose (UA) Negative (NEGATIVE) 01/13/17 16:34 Urine Ketones Negative (NEGATIVE) 01/13/17 16:34 Urine Occult Blood Negative (NEGATIVE) 01/13/17 16:34 Urine Nitrite Negative (NEGATIVE) 01/13/17 16:34 Urine Bilirubin Negative (NEGATIVE) 01/13/17 16:34 Urine Urobilinogen Normal (NORMAL) 01/13/17 16:34 Ur Leukocyte Esterase Negative (NEGATIVE) 01/13/17 16:34 Urine RBC 0-2 /HPF (NEGATIVE) 01/13/17 16:34 Urine WBC 0-1 /HPF (NEGATIVE) 01/13/17 16:34 Ur Squamous Epith Cells Few /HPF (NEGATIVE) 01/13/17 16:34 Urine Bacteria Trace /HPF (NEGATIVE) 01/13/17 16:34 Ur Culture Indicated? No/not indicated 01/13/17 16:34 Urine Opiates Screen Negative (NEG=<300) 01/13/17 17:31 Urine Methadone Screen Negative (NEG=<300) 01/13/17 17:31 Ur Barbiturates Screen Negative (NEG=<200) 01/13/17 17:31 Ur Phencyclidine Scrn Negative (NEG=<25) 01/13/17 17:31 Ur Amphetamines Screen Negative (NEG=<1000) 01/13/17 17:31 U Benzodiazepines Scrn Negative (NEG=<200) 01/13/17 17:31 Urine Cocaine Screen Negative (NEG=<300) 01/13/17 17:31 U Marijuana (THC) Screen Negative (NEG=<50) 01/13/17 17:31 - XRAY XRAY Interpreted by: Radiologist XRAY Findings: REPORT DISCUSS WITH PATIENT. - EKG Rhythm: NSR (EKG NOTED) - Diagnosis Discharge Problem: Chest pain Qualifiers: Chest pain type: precordial pain Qualified Code(s): R07.2 - Precordial pain - Discharge Plan Disposition: ADMITTED INPATIENT Condition: Stable - Follow ups/Referrals - Instructions
[2017-01-13] MEDS ORDERED: DEMEROL INJ ONE (18:06)
[2017-01-13] MEDS ORDERED: PHENERGAN INJ 25 MG ONE (18:06)
[2017-01-13] MEDS ORDERED: NITROSTAT SL PRN (20:03)
[2017-01-13] MEDS: XANAX PO PRN (22:32)
[2017-01-13] MEDS: NS 1000 ML 1,000 ML IV SCH (22:40)
[2017-01-13] MEDS ORDERED: PERCOCET TAB 5/325 MG PO PRN (22:49)
[2017-01-13 22:56] LABS: CKMB % 1.9 % (<4); CREATINE KINASE 59 Units/L (26-192); CREATINE KINASE MB 1.1 ng/mL (0-4.0); TROPONIN I < 0.02 ng/mL (0-1.5)
[2017-01-14 00:06] VITALS: BMI 21.4
[2017-01-14] MEDS ORDERED: PATIENT'S HOME MEDICATION (Alprazolam [Alprazolam] 1 TAB) PO PRN (01:21)
[2017-01-14] MEDS ORDERED: PHENERGAN TAB 25 MG PO PRN (01:21)
[2017-01-14] MEDS ORDERED: PATIENT'S HOME MEDICATION (Tizanidine Hcl [Zanaflex 4 Mg] 1 TAB) PO SCH (06:00)
[2017-01-14] MEDS ORDERED: XANAX PO SCH (06:00)
[2017-01-14] MEDS: NEURONTIN CAP 400 MG PO SCH ×3 (06:07→21:21)
[2017-01-14] MEDS: ZANAFLEX PO SCH ×3 (06:07→21:21)
[2017-01-14] MEDS: PERCOCET TAB 5/325 MG PO SCH ×3 (06:08→21:21)
[2017-01-14 06:23] LABS: BASOPHILS # (AUTO) 0.1 X10^3/uL (0.0-0.1); BASOPHILS % (AUTO) 0.8 % (0.2-1.0); EOSINOPHILS # (AUTO) 0.1 x10^3/uL (0.0-0.2); HEMATOCRIT 39.3 % (36.0-47.0); HEMOGLOBIN 13.6 g/dL (12.0-16.0); LYMPHOCYTES # (AUTO) 3.6 X10^3/uL (1.3-2.9); LYMPHOCYTES % (AUTO) 49.4 % (21.0-51.0); MEAN CORPUSCULAR HEMOGLOBIN 32.4 pg (27.0-34.0); MEAN CORPUSCULAR HGB CONC 34.6 g/dL (33.0-35.0); MEAN CORPUSCULAR VOLUME 93.5 fL (80.0-100.0); MEAN PLATELET VOLUME 8.2 fL (7.4-11.0); MONOCYTES # (AUTO) 0.4 x10^3/uL (0.3-0.8); MONOCYTES % (AUTO) 5.4 % (0.0-13.0); NEUTROPHILS # (AUTO) 3.1 x10^3/uL (2.2-4.8); NEUTROPHILS % (AUTO) 42.4 % (42.0-75.0); PLATELET COUNT 177 X10^3/uL (150.0-450.0); RED CELL DISTRIBUTION WIDTH 13.8 % (11.6-16.5); WHITE BLOOD COUNT 7.2 X10^3/uL (3.6-10.0)
[2017-01-14 06:51] LABS: ALANINE AMINOTRANSFERASE 36 Units/L (12-78); ALBUMIN 3.1 g/dL (3.4-5.0); ALKALINE PHOSPHATASE 91 Units/L (46-116); ASPARTATE AMINO TRANSFERASE 13 Units/L (15-37); BLOOD UREA NITROGEN 11 mg/dL (7-18); CALCIUM 8.8 mg/dL (8.5-10.1); CARBON DIOXIDE 26.3 mmol/L (21-32); CHLORIDE 109 mmol/L (98-107); CKMB % 2.9 % (<4); COR CA(FOR HYPOALB) 9.5 mg/dL (8.5-10.1); CREATINE KINASE 41 Units/L (26-192); CREATINE KINASE MB 1.2 ng/mL (0-4.0); CREATININE 0.86 mg/dL (0.55-1.02); GLUCOSE 95 mg/dL (65-99); SODIUM 143 mmol/L (136-145); TOTAL PROTEIN 6.8 g/dL (6.4-8.2); TROPONIN I < 0.02 ng/mL (0-1.5); eGFR BLACK RACES > 60 (>60); eGFR NON BLACK RACES > 60 (>60)
[2017-01-14] MEDS: MICRO K EXTEN CAP 10 MEQ PO SCH (08:23)
[2017-01-14] MEDS: COREG TAB 6.25 MG PO SCH ×2 (08:23→20:10)
[2017-01-14] MEDS: [UNRECOGNIZED DRUG - OTHER] PO SCH (08:23)
[2017-01-14] MEDS: CELEXA PO SCH ×2 (08:23→20:10)
[2017-01-14] MEDS: ASPIRIN PO SCH (08:23)
[2017-01-14] MEDS ORDERED: PATIENT'S HOME MEDICATION (Potassium Chloride [K-Tab] 1 TAB) PO SCH (09:00)
[2017-01-14] MEDS ORDERED: PHENERGAN INJ 25 MG IM PRN (09:47)
[2017-01-14] MEDS: NS 1000 ML 1,000 ML IV SCH (13:08)
--- NOTE | 2017-01-14 18:56 | DR.H&P ---
H&P - History & Physical for Day of: H&P Date: 01/13/17 - Chief Complaint Chief Complaint: CP - Allergies Allergies/Adverse Reactions: Allergies Allergy/AdvReac Type Severity Reaction Status Date / Time Temazepam [From Restoril] Allergy Verified 01/13/17 15:56 Diphenhydramine AdvReac Verified 01/13/17 15:56 [From Benadryl] - History of Present Illness History of Present Illness: 56 WF ADMITTED FROM ER AFTER PRESENTING WITH CO CHEST PAIN RADIATING TO MID BACK AND JAW. PT STATES SHE TOOK NTG WINERY CELLAR HAND WITH SLIGHT IMPROVEMENT. PT HAS STENTS X 2 IN 09/2015 AND REPEAT HEART CATH IN OCTOBER PER DR AL. PLAN TO ADMIT FOR SERIAL CE; EKGS. RO AMI, BP AND LIPID CONTROL , TELEMETRY - Past Medical History Past Medical History: Anxiety, CHF, COPD, Coronary Artery Disease, Depression, [place] Additional Medical History: Hx of opioid dependence per medical records and recent admission for opioid and benzodiazepine detox. Multiple and frequent hospital admissions for chest pain which have had negative serial cardiac enzymes. Hx of venous insufficiency. History of chronic neck and low back pain. - Past Surgical History Surgical History: Angioplasty/Stents, CABG/Valve Surgery, Ortho Surgery - Family History Family Medical History: [place], Hypertension - Social History Does patient currently use any type of tobacco product: No Have you used tobacco products in the last 12 months: No Type of Tobacco Use: None Does any household member use tobacco: No Alcohol Use: None Drug Use: None - Review of Systems Constitutional: No Symptoms Reported ENT: No Symptoms Reported Respiratory: No Symptoms Reported Cardiovascular: Chest Pain Genitourinary: No Symptoms Reported Musculoskeletal: Back Pain Skin: No Symptoms Reported Neurological: No Symptoms Reported - Physical Exam Vital Signs: Temperature 97.7 F Pulse Rate [Right Radial] 60 Respiratory Rate 20 Blood Pressure [Right Arm] 118/58 O2 Sat by Pulse Oximetry 94 Oriented: Normal Eyes: Normal Ear: Normal Nose: Normal Throat: Normal Respiratory: RLL Diminished, LLL Diminished Cardiovascular: Normal : Normal Auscultation: Bowel Sounds: Normal Palpation: Normal Tenderness: Normal Skin: Normal Musculoskeletal: Back:Lumbar Psychiatric: Anxiety Speech Pattern: Clear, Appropriate - Assessment/Plan (1) Chest pain Qualifiers: Chest pain type: precordial pain Ischemic chest pain type: I Qualified Code(s): R07.2 - Precordial pain Status: Acute Plan: ADMIT, R/O AMI. SERIAL CARDIAC ENZYMES, EKG. BP AND LIPID CONTROL. RESUME HOME MEDS (2) Anxiety Status: Chronic (3) CHF (congestive heart failure) Qualifiers: Congestive heart failure type: C Congestive heart failure chronicity: C Status: Chronic (4) COPD (chronic obstructive pulmonary disease) Qualifiers: COPD type: C Chronic bronchitis type: C Emphysema type: E Status: Chronic (5) GERD (gastroesophageal reflux disease) Qualifiers: Esophagitis presence: E Status: Chronic (6) HTN (hypertension) Qualifiers: Hypertension type: H Status: Chronic
[2017-01-14] MEDS: XANAX PO PRN (20:10)
[2017-01-14] MEDS: PROTONIX INJ 40 MG VIAL IVP SCH (20:17)
[2017-01-14] MEDS ORDERED: QUETIAPINE FUMARATE 300 MG PO SCH (21:00)
[2017-01-14] MEDS ORDERED: AMBIEN PO SCH (21:00)
[2017-01-14] MEDS ORDERED: SEROquel TAB 100 MG PO SCH (21:00)
[2017-01-15] MEDS: NS 1000 ML 1,000 ML IV SCH ×2 (00:09→05:50)
[2017-01-15] MEDS: PERCOCET TAB 5/325 MG PO SCH ×3 (05:08→13:05)
[2017-01-15] MEDS: NEURONTIN CAP 400 MG PO SCH ×2 (05:09→13:05)
[2017-01-15] MEDS: ZANAFLEX PO SCH ×2 (05:09→13:06)
[2017-01-15] MEDS: ASPIRIN PO SCH (08:46)
[2017-01-15] MEDS: CELEXA PO SCH (08:46)
[2017-01-15] MEDS: COREG TAB 6.25 MG PO SCH (08:46)
[2017-01-15] MEDS: [UNRECOGNIZED DRUG - OTHER] PO SCH (08:47)
[2017-01-15] MEDS: PROTONIX INJ 40 MG VIAL IVP SCH (08:47)
[2017-01-15] MEDS: MICRO K EXTEN CAP 10 MEQ PO SCH (08:47)
[2017-01-15] MEDS: XANAX PO PRN (08:54)
--- NOTE | 2017-01-15 08:54 | RAD ---
History: Chest pain. Study: Portable upright AP chest. Comparison: January 13 Findings: There is new mild vascular congestion. The heart size is mildly enlarged with intact defib rillator wires in place from the left subclavian vein. There has been a sternotomy. There is an unch anged right subclavian Port-A-Cath. Impression: New vascular congestion and mild cardiomegaly Reported By:
[2017-01-15] MEDS ORDERED: LASIX IVP ONE (09:39)
[2017-01-15] MEDS ORDERED: K-DUR TAB 20 MEQ PO ONE (09:40)
[2017-01-15 12:30] VITALS: BP 167/74
--- NOTE | 2017-01-15 13:12 | PCM.PROG ---
Progress Note - Progress Note for Day of Date: 01/14/17 - Subjective Subjective: LEFT SIDE CHEST PAIN - Past Medical Family Social History Past Med/Fam/Surg Hx: No changes since H&P Allergies: Allergies Temazepam [From Restoril] Allergy (Verified 01/13/17 15:56) Diphenhydramine [From Benadryl] Adverse Reaction (Verified 01/13/17 15:56) - Review of Systems ROS: No change since H&P - Vital Signs and I&O's Vital Signs: Temperature 97.5 F Pulse Rate [Right Radial] 64 Respiratory Rate 20 Blood Pressure [Right Arm] 167/74 O2 Sat by Pulse Oximetry 99 Intake and Output: Intake & Output 01/13/17 01/14/17 01/15/17 01/16/17 11:59 11:59 11:59 11:59 Intake Total 930 2680 Balance 930 2680 - Physical Exam Oriented: Normal Eyes: Normal Ear: Normal Nose: Normal Throat: Normal Respiratory: Wheezes (MILD LOWER EXP WHEEZES) Cardiovascular: Normal : Normal Auscultation: Bowel Sounds: Normal Tenderness: Normal Skin: Normal Musculoskeletal: Back:Lumbar Psychiatric: Anxiety Speech Pattern: Clear, Appropriate - Laboratory and Diagnostics Result Diagrams: 01/14/17 05:45 01/14/17 05:45 Labs: Laboratory WBC 7.2 X10^3/uL (3.6-10.0) 01/14/17 05:45 RBC 4.20 X10^6/uL (3.5-5.4) 01/14/17 05:45 Hgb 13.6 g/dL (12.0-16.0) 01/14/17 05:45 Hct 39.3 % (36.0-47.0) 01/14/17 05:45 MCV 93.5 fL (80.0-100.0) 01/14/17 05:45 MCH 32.4 pg (27.0-34.0) 01/14/17 05:45 MCHC 34.6 g/dL (33.0-35.0) 01/14/17 05:45 RDW 13.8 % (11.6-16.5) 01/14/17 05:45 Plt Count 177 X10^3/uL (150.0-450.0) 01/14/17 05:45 MPV 8.2 fL (7.4-11.0) 01/14/17 05:45 Neut % 42.4 % (42.0-75.0) 01/14/17 05:45 Lymph % 49.4 % (21.0-51.0) 01/14/17 05:45 [place] % 5.4 % (0.0-13.0) 01/14/17 05:45 Eos % 2.0 % (0.9-2.9) 01/14/17 05:45 Baso % 0.8 % (0.2-1.0) 01/14/17 05:45 Neut # 3.1 x10^3/uL (2.2-4.8) 01/14/17 05:45 Lymph # 3.6 X10^3/uL (1.3-2.9) H 01/14/17 05:45 [place] # 0.4 x10^3/uL (0.3-0.8) 01/14/17 05:45 Eos # 0.1 x10^3/uL (0.0-0.2) 01/14/17 05:45 Baso # 0.1 X10^3/uL (0.0-0.1) 01/14/17 05:45 Absolute Nucleated RBC 0.0 /100WBC 01/14/17 05:45 INR Target Range - 01/13/17 16:36 INR 0.92 (0.8-1.3) 01/13/17 16:36 PTT 25.5 SECONDS (22.9-36.5) 01/13/17 16:36 PTT Comment - 01/13/17 16:36 D-Dimer 90.5 ng/mL (0-400) 01/13/17 16:10 Sodium 143 mmol/L (136-145) 01/14/17 05:45 Corrected Sodium TNP 01/14/17 05:45 Potassium 3.9 mmol/L (3.5-5.1) 01/14/17 05:45 Chloride 109 mmol/L (98-107) H 01/14/17 05:45 Carbon Dioxide 26.3 mmol/L (21-32) 01/14/17 05:45 BUN 11 mg/dL (7-18) 01/14/17 05:45 Creatinine 0.86 mg/dL (0.55-1.02) 01/14/17 05:45 Est GFR (MDRD) Af Amer > 60 (>60) 01/14/17 05:45 Est GFR (MDRD) Non-Af > 60 (>60) 01/14/17 05:45 Glucose 95 mg/dL (65-99) 01/14/17 05:45 Calcium 8.8 mg/dL (8.5-10.1) 01/14/17 05:45 Corrected Calcium 9.5 mg/dL (8.5-10.1) 01/14/17 05:45 Magnesium 1.9 mg/dL (1.7-2.9) 01/13/17 16:10 Total Bilirubin 0.20 mg/dL (0.2-1.0) 01/14/17 05:45 AST 13 Units/L (15-37) L 01/14/17 05:45 ALT 36 Units/L (12-78) 01/14/17 05:45 Alkaline Phosphatase 91 Units/L (46-116) 01/14/17 05:45 Creatine Kinase 41 Units/L (26-192) 01/14/17 05:45 CK-MB (CK-2) 1.2 ng/mL (0-4.0) 01/14/17 05:45 CK/CKMB % Calc 2.9 % (<4) 01/14/17 05:45 Troponin I < 0.02 ng/mL (0-1.5) 01/14/17 05:45 Total Protein 6.8 g/dL (6.4-8.2) 01/14/17 05:45 Albumin 3.1 g/dL (3.4-5.0) L 01/14/17 05:45 Globulin 3.7 g/dL (2.5-4.5) 01/14/17 05:45 Albumin/Globulin Ratio 0.8 Ratio (1.1-2.1) L 01/14/17 05:45 Specimen Type Clean catch urine 01/13/17 16:34 Urine Color Pale yellow (YELLOW) 01/13/17 16:34 Urine Appearance Clear (CLEAR) 01/13/17 16:34 Urine pH 7.0 (5.0 - 8.0) 01/13/17 16:34 Ur Specific [place] 1.005 (1.000-1.030) 01/13/17 16:34 Urine Protein Negative (NEGATIVE) 01/13/17 16:34 Urine Glucose (UA) Negative (NEGATIVE) 01/13/17 16:34 Urine Ketones Negative (NEGATIVE) 01/13/17 16:34 Urine Occult Blood Negative (NEGATIVE) 01/13/17 16:34 Urine Nitrite Negative (NEGATIVE) 01/13/17 16:34 Urine Bilirubin Negative (NEGATIVE) 01/13/17 16:34 Urine Urobilinogen Normal (NORMAL) 01/13/17 16:34 Ur Leukocyte Esterase Negative (NEGATIVE) 01/13/17 16:34 Urine RBC 0-2 /HPF (NEGATIVE) 01/13/17 16:34 Urine WBC 0-1 /HPF (NEGATIVE) 01/13/17 16:34 Ur Squamous Epith Cells Few /HPF (NEGATIVE) 01/13/17 16:34 Urine Bacteria Trace /HPF (NEGATIVE) 01/13/17 16:34 Ur Culture Indicated? No/not indicated 01/13/17 16:34 Urine Opiates Screen Negative (NEG=<300) 01/13/17 17:31 Urine Methadone Screen Negative (NEG=<300) 01/13/17 17:31 Ur Barbiturates Screen Negative (NEG=<200) 01/13/17 17:31 Ur Phencyclidine Scrn Negative (NEG=<25) 01/13/17 17:31 Ur Amphetamines Screen Negative (NEG=<1000) 01/13/17 17:31 U Benzodiazepines Scrn Negative (NEG=<200) 01/13/17 17:31 Urine Cocaine Screen Negative (NEG=<300) 01/13/17 17:31 U Marijuana (THC) Screen Negative (NEG=<50) 01/13/17 17:31 - Plan (1) Chest pain Status: Acute Qualifiers: Chest pain type: precordial pain Ischemic chest pain type: I Qualified Code(s): R07.2 - Precordial pain Plan: SERIAL CARDIAC ENZYMES, EKG STABLE. BP AND LIPID CONTROL. RESUME HOME MEDS, DISCUSSED CASE WITH PTS OPERATIONS SUPPORT ANALYST DR AL (2) Anxiety Status: Chronic (3) CHF (congestive heart failure) Status: Chronic Qualifiers: Congestive heart failure type: C Congestive heart failure chronicity: C Plan: LASIX IV. I & OS. AM CXR (4) COPD (chronic obstructive pulmonary disease) Status: Chronic Qualifiers: COPD type: C Chronic bronchitis type: C Emphysema type: E (5) GERD (gastroesophageal reflux disease) Status: Chronic Qualifiers: Esophagitis presence: E (6) HTN (hypertension) Status: Chronic Qualifiers: Hypertension type: H
--- NOTE | 2017-01-15 13:15 | PCM.DCPLAN ---
Discharge Summary - Admission Date Date of Admission: 01/13/17 - Discharge Date Discharge Date: 01/15/17 - Admission Diagnoses (1) Chest pain Status: Acute (2) Anxiety Status: Chronic (3) CHF (congestive heart failure) Status: Chronic (4) COPD (chronic obstructive pulmonary disease) Status: Chronic (5) GERD (gastroesophageal reflux disease) Status: Chronic (6) HTN (hypertension) Status: Chronic - Discharge Diagnoses Discharge Diagnosis: SAME ADMISSION - Hospital Course Vital Signs: Temperature 97.5 F Pulse Rate [Right Radial] 64 Respiratory Rate 20 Blood Pressure [Right Arm] 167/74 O2 Sat by Pulse Oximetry 99 Latest Lab Results: Laboratory Last Values WBC 7.2 X10^3/uL (3.6-10.0) 01/14/17 05:45 RBC 4.20 X10^6/uL (3.5-5.4) 01/14/17 05:45 Hgb 13.6 g/dL (12.0-16.0) 01/14/17 05:45 Hct 39.3 % (36.0-47.0) 01/14/17 05:45 MCV 93.5 fL (80.0-100.0) 01/14/17 05:45 MCH 32.4 pg (27.0-34.0) 01/14/17 05:45 MCHC 34.6 g/dL (33.0-35.0) 01/14/17 05:45 RDW 13.8 % (11.6-16.5) 01/14/17 05:45 Plt Count 177 X10^3/uL (150.0-450.0) 01/14/17 05:45 MPV 8.2 fL (7.4-11.0) 01/14/17 05:45 Neut % 42.4 % (42.0-75.0) 01/14/17 05:45 Lymph % 49.4 % (21.0-51.0) 01/14/17 05:45 [place] % 5.4 % (0.0-13.0) 01/14/17 05:45 Eos % 2.0 % (0.9-2.9) 01/14/17 05:45 Baso % 0.8 % (0.2-1.0) 01/14/17 05:45 Neut # 3.1 x10^3/uL (2.2-4.8) 01/14/17 05:45 Lymph # 3.6 X10^3/uL (1.3-2.9) H 01/14/17 05:45 [place] # 0.4 x10^3/uL (0.3-0.8) 01/14/17 05:45 Eos # 0.1 x10^3/uL (0.0-0.2) 01/14/17 05:45 Baso # 0.1 X10^3/uL (0.0-0.1) 01/14/17 05:45 Absolute Nucleated RBC 0.0 /100WBC 01/14/17 05:45 INR Target Range - 01/13/17 16:36 INR 0.92 (0.8-1.3) 01/13/17 16:36 PTT 25.5 SECONDS (22.9-36.5) 01/13/17 16:36 PTT Comment - 01/13/17 16:36 D-Dimer 90.5 ng/mL (0-400) 01/13/17 16:10 Sodium 143 mmol/L (136-145) 01/14/17 05:45 Corrected Sodium TNP 01/14/17 05:45 Potassium 3.9 mmol/L (3.5-5.1) 01/14/17 05:45 Chloride 109 mmol/L (98-107) H 01/14/17 05:45 Carbon Dioxide 26.3 mmol/L (21-32) 01/14/17 05:45 BUN 11 mg/dL (7-18) 01/14/17 05:45 Creatinine 0.86 mg/dL (0.55-1.02) 01/14/17 05:45 Est GFR (MDRD) Af Amer > 60 (>60) 01/14/17 05:45 Est GFR (MDRD) Non-Af > 60 (>60) 01/14/17 05:45 Glucose 95 mg/dL (65-99) 01/14/17 05:45 Calcium 8.8 mg/dL (8.5-10.1) 01/14/17 05:45 Corrected Calcium 9.5 mg/dL (8.5-10.1) 01/14/17 05:45 Magnesium 1.9 mg/dL (1.7-2.9) 01/13/17 16:10 Total Bilirubin 0.20 mg/dL (0.2-1.0) 01/14/17 05:45 AST 13 Units/L (15-37) L 01/14/17 05:45 ALT 36 Units/L (12-78) 01/14/17 05:45 Alkaline Phosphatase 91 Units/L (46-116) 01/14/17 05:45 Creatine Kinase 41 Units/L (26-192) 01/14/17 05:45 CK-MB (CK-2) 1.2 ng/mL (0-4.0) 01/14/17 05:45 CK/CKMB % Calc 2.9 % (<4) 01/14/17 05:45 Troponin I < 0.02 ng/mL (0-1.5) 01/14/17 05:45 Total Protein 6.8 g/dL (6.4-8.2) 01/14/17 05:45 Albumin 3.1 g/dL (3.4-5.0) L 01/14/17 05:45 Globulin 3.7 g/dL (2.5-4.5) 01/14/17 05:45 Albumin/Globulin Ratio 0.8 Ratio (1.1-2.1) L 01/14/17 05:45 Specimen Type Clean catch urine 01/13/17 16:34 Urine Color Pale yellow (YELLOW) 01/13/17 16:34 Urine Appearance Clear (CLEAR) 01/13/17 16:34 Urine pH 7.0 (5.0 - 8.0) 01/13/17 16:34 Ur Specific [place] 1.005 (1.000-1.030) 01/13/17 16:34 Urine Protein Negative (NEGATIVE) 01/13/17 16:34 Urine Glucose (UA) Negative (NEGATIVE) 01/13/17 16:34 Urine Ketones Negative (NEGATIVE) 01/13/17 16:34 Urine Occult Blood Negative (NEGATIVE) 01/13/17 16:34 Urine Nitrite Negative (NEGATIVE) 01/13/17 16:34 Urine Bilirubin Negative (NEGATIVE) 01/13/17 16:34 Urine Urobilinogen Normal (NORMAL) 01/13/17 16:34 Ur Leukocyte Esterase Negative (NEGATIVE) 01/13/17 16:34 Urine RBC 0-2 /HPF (NEGATIVE) 01/13/17 16:34 Urine WBC 0-1 /HPF (NEGATIVE) 01/13/17 16:34 Ur Squamous Epith Cells Few /HPF (NEGATIVE) 01/13/17 16:34 Urine Bacteria Trace /HPF (NEGATIVE) 01/13/17 16:34 Ur Culture Indicated? No/not indicated 01/13/17 16:34 Urine Opiates Screen Negative (NEG=<300) 01/13/17 17:31 Urine Methadone Screen Negative (NEG=<300) 01/13/17 17:31 Ur Barbiturates Screen Negative (NEG=<200) 01/13/17 17:31 Ur Phencyclidine Scrn Negative (NEG=<25) 01/13/17 17:31 Ur Amphetamines Screen Negative (NEG=<1000) 01/13/17 17:31 U Benzodiazepines Scrn Negative (NEG=<200) 01/13/17 17:31 Urine Cocaine Screen Negative (NEG=<300) 01/13/17 17:31 U Marijuana (THC) Screen Negative (NEG=<50) 01/13/17 17:31 Hospital Course: 56 WHITE FEMALE ADMITTED FROM ER WITH CO CHEST PAIN. PT HAD CXR, SERIAL CARDIAC ENYMES AND EKG'S WHICH WERE NEGATIVE FOR ACUTE CHANGES. PT HAD LAST HEART CATH [place] [address] AL AND HE WAS CONSULTED ABOUT PT'S PLAN OF CARE. HE ADVISED IF CARDIAC ENZYMES WERE STABLE TO UTILIZE MEDICATION MANAGEMENT. PT STATE SHE HAS NOT BEEN TAKING COREG ORDERED. PT CXR ON DAY 2 INCREASE VASCULAR CONGESTION, PT GIVEN LASIX 40 IV PRIOR TO D/C. PT INSTRUCTED TO RESUME HOME MEDS BB, ASA, STATIN, NO SMOKING AND FOLLOW UP WITH [facility] SCHEDULED. PT CO LEFT EYE PAIN PRIOR TO D/C WITHOUT REDNESS OR D/C, PT REFERRED TO [facility] FOR OPTH EXAM ON OPT BASIS. - Discharge Plan Disposition: 01 HOME, SELF-CARE Condition: Stable - Follow ups/Referrals Follow ups/Referrals: NFD,None [Primary Care Provider] - 3 days - Instructions Additional Instructions: REFERRAL TO [facility] FOR OPTH EXAM PT HAS NEW COMPLAINTS THIS AM OF LEFT EYE PAIN WITHOUT REDNESS OR D/C PT TO RESUME HOME MEDS TAKE INSTRUCTED PT TO SEE DR AL ON OPT BASIS IN 2 WEEKS FOR FOLLOW UP PT TO KEEP BP LOG AND BRING TO VISIT NO SMOKING, REST
== END 2017-01-15 14:06 | disposition home or self-care (01) ==
LOC: ER 16:01 → OBS 20:01
PROVIDERS: ADMIT Internal Medicine; ATTEND Internal Medicine
DX: R07.2 Precordial pain (principal); E78.2 Mixed hyperlipidemia; F32.89 Other specified depressive episodes; F41.8 Other specified anxiety disorders; I25.10 Atherosclerotic heart disease of native coronary artery without angina pectoris; R94.31 Abnormal electrocardiogram [ECG] [EKG]; R53.1 Weakness; R06.02 Shortness of breath; J44.9 Chronic obstructive pulmonary disease, unspecified; M54.2 Cervicalgia; M54.5 Low back pain; I50.9 Heart failure, unspecified
CPT/HCPCS: 36415; 36591; 71010; 80053; 80307; 81001; 82550; 82553; 83735; 84484; 85025; 85378; 85610; 85730; 93005; 93010; 94760; 96365; 96372; 96374; 96375; 99284; C9113; Q0169; G0378; G0434; J1940; J2175; J2550

== ENCOUNTER 2017-04-07 17:24 | Observation (INO) | payer OTHER ==
--- NOTE | 2017-04-07 17:54 | DR.H&P ---
H&P - History & Physical for Day of: H&P Date: 04/07/17 - Chief Complaint Chief Complaint: chest pain, de la torre, dizziness. "blacked out"- pt states she thinks she had another stroke - Allergies Allergies/Adverse Reactions: Allergies Allergy/AdvReac Type Severity Reaction Status Date / Time MS Temazepam [From Restoril] Allergy Verified 01/13/17 15:56 MS Diphenhydramine AdvReac Verified 01/13/17 15:56 [From Benadryl] - History of Present Illness History of Present Illness: 57 [address] shay office with co de la torre and dizziness and blacking out episode. pt feels like she has had "another stroke" pt also co chest pain. pt has hx of cad, last cath per dr vega and was normal. pt also had htn, hyperlipidemia and copd. plan to admit for ct head and serial cardiac enzymes - Past Medical History Past Medical History: Anxiety, CHF, COPD, Coronary Artery Disease, Depression, [place] Additional Medical History: Hx of opioid dependence per medical records and recent admission for opioid and benzodiazepine detox. Multiple and frequent hospital admissions for chest pain which have had negative serial cardiac enzymes. Hx of venous insufficiency. History of chronic neck and low back pain. - Past Surgical History Surgical History: Angioplasty/Stents, CABG/Valve Surgery, Ortho Surgery - Family History Family Medical History: [place], Hypertension - Social History Does patient currently use any type of tobacco product: Yes Have you used tobacco products in the last 12 months: Yes Type of Tobacco Use: Cigarettes Does any household member use tobacco: No Alcohol Use: None Drug Use: Prescription Drugs - Review of Systems Constitutional: Weakness Eyes: No Symptoms Reported ENT: No Symptoms Reported Respiratory: Shortness of Breath Cardiovascular: Chest Pain Gastrointestinal: No Symptoms Reported Musculoskeletal: Back Pain, Leg Pain, Neck Pain Skin: No Symptoms Reported Neurological: Weakness, Other ("black out" episodes, syncope, memory loss) - Physical Exam Vital Signs: Blood Pressure [Left Arm] 131/66 Blood Pressure [Right Arm] 167/74 Blood Pressure 167/74 Oriented: Normal Eyes: Normal Ear: Normal Nose: Normal Throat: Normal Respiratory: Wheezes Throughout, RLL Diminished, LLL Diminished Cardiovascular: Bradycardia. negative: Edema : Normal Auscultation: Bowel Sounds: Normal Palpation: Normal Tenderness: Normal Skin: Normal Musculoskeletal: Back:Lumbar, Tender (cervical spine) Mood Description: Calm Speech Pattern: Clear, Appropriate - Assessment/Plan (1) Blackout spell Status: Acute Plan: admit, ct head on admission. admission labs, cbc cmp ua uds. serial cardiac enzymes and ekg's. bp and lipid control, supplemental o2. resume home meds, monitor (2) Dizziness Status: Acute (3) Chest pain Qualifiers: Chest pain type: precordial chest pain Qualified Code(s): R07.2 - Precordial pain Status: Acute (4) CAD (coronary artery disease) Status: Chronic (5) CHF (congestive heart failure) Status: Chronic (6) COPD (chronic obstructive pulmonary disease) Status: Chronic
[2017-04-07 18:35] VITALS: BMI 28.3
[2017-04-07 18:55] LABS: BASOPHILS # (AUTO) 0.1 X10^3/uL (0.0-0.1); BASOPHILS % (AUTO) 1.1 % (0.2-1.0); EOSINOPHILS # (AUTO) 0.1 x10^3/uL (0.0-0.2); EOSINOPHILS % (AUTO) 1.6 % (0.9-2.9); HEMATOCRIT 38.3 % (36.0-47.0); HEMOGLOBIN 13.4 g/dL (12.0-16.0); LYMPHOCYTES % (AUTO) 49.2 % (21.0-51.0); MEAN CORPUSCULAR HEMOGLOBIN 32.8 pg (27.0-34.0); MEAN CORPUSCULAR HGB CONC 34.9 g/dL (33.0-35.0); MEAN CORPUSCULAR VOLUME 93.7 fL (80.0-100.0); MEAN PLATELET VOLUME 8.4 fL (7.4-11.0); MONOCYTES # (AUTO) 0.6 x10^3/uL (0.3-0.8); MONOCYTES % (AUTO) 7.3 % (0.0-13.0); NEUTROPHILS # (AUTO) 3.4 x10^3/uL (2.2-4.8); NEUTROPHILS % (AUTO) 40.8 % (42.0-75.0); PLATELET COUNT 211 X10^3/uL (150.0-450.0); RED BLOOD COUNT 4.08 X10^6/uL (3.5-5.4); RED CELL DISTRIBUTION WIDTH 13.5 % (11.6-16.5); WHITE BLOOD COUNT 8.2 X10^3/uL (3.6-10.0)
[2017-04-07] MEDS ORDERED: PROTONIX INJ 40 MG VIAL IVP SCH (19:00)
[2017-04-07 19:06] LABS: ALANINE AMINOTRANSFERASE 29 Units/L (12-78); ALBUMIN 3.7 g/dL (3.4-5.0); ALKALINE PHOSPHATASE 94 Units/L (46-116); ASPARTATE AMINO TRANSFERASE 21 Units/L (15-37); BLOOD UREA NITROGEN 11 mg/dL (7-18); CALCIUM 8.6 mg/dL (8.5-10.1); CARBON DIOXIDE 28.6 mmol/L (21-32); CHLORIDE 107 mmol/L (98-107); CREATININE 0.99 mg/dL (0.55-1.02); SODIUM 143 mmol/L (136-145); TOTAL PROTEIN 7.5 g/dL (6.4-8.2); eGFR BLACK RACES > 60 (>60); eGFR NON BLACK RACES > 60 (>60)
--- NOTE | 2017-04-07 19:14 | CT ---
STUDY: CT HEAD WITHOUT CONTRAST HISTORY: Headache. Dizziness. TECHNIQUE: Multiple axial images of the head were obtained from the skull base to the vertex without administration of IV contrast. Automated exposure control (AEC) was utilized to adjust the MA and/o r kV. COMPARISON: Head CT dated December 14, 2014. FINDINGS: The sulci, cisterns and ventricles are age appropriate. There is no evidence of acute terr itorial infarction, hemorrhage, mass, mass effect, or midline shift. There are no abnormal intra-axia l or extra-axial fluid collections. There is no evidence of acute osseous abnormality or significant soft tissue swelling. Visualized par anasal sinuses and mastoid air cells are predominately clear. IMPRESSION: 1. No evidence of acute intracranial abnormality. Reported By:
[2017-04-07 19:19] LABS: CKMB % 1.4 % (<4); CREATINE KINASE 72 Units/L (26-192); CREATINE KINASE MB < 1.0 ng/mL (0-4.0); TROPONIN I < 0.02 ng/mL (0-1.5)
[2017-04-07] MEDS: MORPHINE SULFATE INJ 2 MG INJ IVP PRN (19:46)
[2017-04-07] MEDS: CRESTOR TAB 10 MG PO SCH ×2 (19:47→21:17)
[2017-04-07] MEDS: LOVENOX INJ 40 MG SYR SC SCH (19:47)
[2017-04-07] MEDS: ECOTRIN TAB 325 MG PO SCH (19:47)
[2017-04-07] MEDS: COLACE CAP 100 MG PO SCH ×2 (19:47→21:16)
[2017-04-07] MEDS: COREG TAB 6.25 MG PO SCH ×2 (19:48→21:17)
--- NOTE | 2017-04-07 22:27 | RAD ---
EXAM: Chest X-ray INDICATION: Shortness of breath COMPARISION: Prior exam from January 15, 2017 TECHNIQUE: Single view FINDINGS: Chronic lung parenchymal changes are present bilaterally. The lung volumes are increased, and there i s flattening of the hemidiaphragms. No focal lung parenchymal abnormality identified. The cardiac si lhouette is mildly enlarged. There is a left-sided defibrillator and sternotomy wires are present. Ri ght todd catheter tip is in superior vena cava. The mediastinum is normal. The regional skeleton i s intact. No evidence of a pleural effusion. IMPRESSION: Chronic lung parenchymal changes are seen bilaterally and the lung volumes are increased, consistent with COPD. No acute abnormality. Reported By:
[2017-04-07] MEDS: XANAX PO PRN (23:46)
[2017-04-07] MEDS: PERCOCET TAB 5/325 MG PO PRN (23:46)
[2017-04-08 01:27] LABS: CKMB % 1.7 % (<4); CREATINE KINASE 58 Units/L (26-192); CREATINE KINASE MB < 1.0 ng/mL (0-4.0); TROPONIN I < 0.02 ng/mL (0-1.5)
[2017-04-08] MEDS: MORPHINE SULFATE INJ 2 MG INJ IVP PRN ×3 (02:04→22:04)
[2017-04-08 02:26] LABS: BILIRUBIN,URINE NEGATIVE (NEGATIVE); BLOOD/HEMOGLOBIN,URINE NEGATIVE (NEGATIVE); GLUCOSE, URINE NEGATIVE (NEGATIVE); KETONES,URINE NEGATIVE (NEGATIVE); LEUKOCYTE ESTERASE ,URINE 1+ (NEGATIVE); NITRITES,URINE NEGATIVE (NEGATIVE); PROTEIN,URINE 1+ (NEGATIVE); UROBILINOGEN,URINE NORMAL (NORMAL)
[2017-04-08 02:32] LABS: APPEARANCE,URINE SLIGHTLY HAZY (CLEAR); BACTERIA,URINE 1+ /HPF (NEGATIVE); COLOR,URINE YELLOW (YELLOW); RBC,URINE NONE SEEN /HPF (NEGATIVE); SQUAMOUS EPITHELIAL CELL,UR RARE /HPF (NEGATIVE)
[2017-04-08 05:53] LABS: CHOL/HDL RATIO 9.8 (0.0-5.0)
[2017-04-08] MEDS ORDERED: K-LYTE EFFERVESCENT PO PRN (06:01)
[2017-04-08] MEDS ORDERED: K-RIDER 10 MEQ/NS 100 ML 10 MEQ/100 ML BAG IV PRN (06:01)
[2017-04-08] MEDS ORDERED: POTASSIUM CHLORIDE LIQ 20 MEQ UDC PO PRN (06:01)
[2017-04-08] MEDS ORDERED: K-DUR TAB 20 MEQ PO PRN (06:01)
[2017-04-08 06:13] LABS: CKMB % 1.9 % (<4); CREATINE KINASE 53 Units/L (26-192); CREATINE KINASE MB < 1.0 ng/mL (0-4.0); TROPONIN I < 0.02 ng/mL (0-1.5)
[2017-04-08] MEDS: PEPCID 20 MG IV PREMIX* 20 MG/50 ML BAG IV SCH (08:15)
[2017-04-08] MEDS: PERCOCET TAB 5/325 MG PO PRN (08:16)
[2017-04-08] MEDS: ECOTRIN TAB 325 MG PO SCH (08:16)
[2017-04-08] MEDS: LOVENOX INJ 40 MG SYR SC SCH (09:30)
[2017-04-08] MEDS: COREG TAB 6.25 MG PO SCH ×2 (12:49→20:38)
[2017-04-08] MEDS: COLACE CAP 100 MG PO SCH (20:38)
[2017-04-08] MEDS: CRESTOR TAB 10 MG PO SCH (20:38)
[2017-04-08] MEDS: XANAX PO PRN (22:04)
[2017-04-09] MEDS: PERCOCET TAB 5/325 MG PO PRN ×2 (02:36→09:20)
[2017-04-09] MEDS: MORPHINE SULFATE INJ 2 MG INJ IVP PRN (05:21)
[2017-04-09 06:11] LABS: BASOPHILS % (AUTO) 0.6 % (0.2-1.0); EOSINOPHILS # (AUTO) 0.2 x10^3/uL (0.0-0.2); EOSINOPHILS % (AUTO) 3.6 % (0.9-2.9); HEMATOCRIT 38.1 % (36.0-47.0); HEMOGLOBIN 13.1 g/dL (12.0-16.0); LYMPHOCYTES # (AUTO) 3.1 X10^3/uL (1.3-2.9); LYMPHOCYTES % (AUTO) 52.2 % (21.0-51.0); MEAN CORPUSCULAR HEMOGLOBIN 32.3 pg (27.0-34.0); MEAN CORPUSCULAR HGB CONC 34.4 g/dL (33.0-35.0); MEAN CORPUSCULAR VOLUME 93.8 fL (80.0-100.0); MEAN PLATELET VOLUME 8.7 fL (7.4-11.0); MONOCYTES # (AUTO) 0.4 x10^3/uL (0.3-0.8); MONOCYTES % (AUTO) 6.6 % (0.0-13.0); NEUTROPHILS # (AUTO) 2.2 x10^3/uL (2.2-4.8); PLATELET COUNT 161 X10^3/uL (150.0-450.0); RED BLOOD COUNT 4.06 X10^6/uL (3.5-5.4); RED CELL DISTRIBUTION WIDTH 13.5 % (11.6-16.5); WHITE BLOOD COUNT 5.9 X10^3/uL (3.6-10.0)
[2017-04-09 06:23] LABS: ALANINE AMINOTRANSFERASE 25 Units/L (12-78); ALKALINE PHOSPHATASE 89 Units/L (46-116); ASPARTATE AMINO TRANSFERASE 16 Units/L (15-37); BLOOD UREA NITROGEN 11 mg/dL (7-18); CALCIUM 8.3 mg/dL (8.5-10.1); CHLORIDE 108 mmol/L (98-107); COR CA(FOR HYPOALB) 9.1 mg/dL (8.5-10.1); CREATININE 0.89 mg/dL (0.55-1.02); SODIUM 142 mmol/L (136-145); TOTAL PROTEIN 6.6 g/dL (6.4-8.2); eGFR BLACK RACES > 60 (>60); eGFR NON BLACK RACES > 60 (>60)
[2017-04-09] MEDS: COREG TAB 6.25 MG PO SCH (09:11)
[2017-04-09] MEDS: LOVENOX INJ 40 MG SYR SC SCH (09:14)
[2017-04-09] MEDS: ECOTRIN TAB 325 MG PO SCH (09:21)
[2017-04-09] MEDS: PEPCID 20 MG IV PREMIX* 20 MG/50 ML BAG IV SCH (09:21)
[2017-04-09] MEDS: XANAX PO PRN (09:21)
--- NOTE | 2017-04-09 10:42 | VAS ---
HISTORY: CVA, dizziness, CAD Study: Bilateral Carotid Ultrasound Comparison: None Technique: Multiple ruiz scale and color flow Doppler images of the right and left carotid arterial s ystem were obtained. The vertebral arterial system was evaluated as well. Findings: Normal color flow Doppler is seen throughout the right and left carotid arterial system. There is mi ld plaque present at the bilateral carotid bifurcations. Peak systolic velocity in the right ICA is 9 3 cm/sec. Peak systolic velocity in the left ICA is 77 cm/sec. The right ICA/CCA ratio is 2.13 which is slightly elevated but velocities appear normal on the right side. The left ICA/CCA ratio is 1.63. The right and left vertebral arteries were not visualized. IMPRESSION: 1. Mild atherosclerotic plaque is present without evidence of hemodynamically significant stenosis by velocity criteria. 2. The vertebral arteries were not visualized. Reported By:
[2017-04-09 10:43] VITALS: BP 145/72
== END 2017-04-09 11:36 | disposition home or self-care (01) | DRG 313 ==
LOC: MED/SURG 17:24
PROVIDERS: ADMIT Internal Medicine; ATTEND Internal Medicine
DX: R07.89 Other chest pain (principal); R42 Dizziness and giddiness; R51 Headache; R55 Syncope and collapse; I25.10 Atherosclerotic heart disease of native coronary artery without angina pectoris; I50.9 Heart failure, unspecified; J44.9 Chronic obstructive pulmonary disease, unspecified; F41.8 Other specified anxiety disorders; G89.4 Chronic pain syndrome; I10 Essential (primary) hypertension
CPT/HCPCS: 36415; 70450; 71010; 80053; 80061; 80307; 81001; 82550; 82553; 83735; 84132; 84484; 85025; 85610; 85730; 87086; 93005; 93010; 93880; 94760; A4216; S0028; G0378; G0434; J1650; J2270

== ENCOUNTER → 2017-06-04 | Outpatient (CLI) | payer OTHER ==
[~2017-06-04] MED LIST: NS 100 ML IV 100 ML IV ONE
[2017-06-04 10:18] LABS: CREATININE 1.11 mg/dL (0.55-1.02)
--- NOTE | 2017-06-04 16:29 | CT ---
HISTORY: Memory impairment and headaches. Study: CTA brain with contrast Comparison: CT head dated april 07, 2017. Technique: Multiple axial images of the brain were obtained from the skull base to the vertex after the administ ration of IV contrast. Dose reduction techniques including Automated Exposure Control (AEC) and adju stment of mA and kV were utilized. Findings: Age-related cortical atrophy and chronic small vessel ischemic changes. No acute intraparenchymal hem orrhage or mass can be identified. No extra-axial fluid collections are seen. No alteration in the attenuation of the brain parenchyma can be identified to suggest acute or subacute ischemic change. The ventricular system is symmetric and nondilated. The extracranial structures are grossly unremark able. No areas of abnormal enhancement. Atherosclerotic vascular calcifications of the internal carotid art basilia's. Otherwise, the visualized vasculature appears normal. IMPRESSION: No acute intracranial pathology. Reported By:
== END ==
LOC: RAD 09:31
PROVIDERS: ATTEND Nurse Practitioner Family
DX: R41.3 Other amnesia (principal)
CPT/HCPCS: 36415; 70496; 82565; 84520

== ENCOUNTER 2017-06-16 10:49 | Observation (INO) | payer OTHER ==
[2017-06-16 11:45] VITALS: BMI 29.0
[2017-06-16] MEDS ORDERED: ZOFRAN INJ 4 MG VIAL 16 MG, ATIVAN INJ 2 MG VIAL 1 MG, DECADRON INJ 10 MG in NS 50 ML I... IV PRN (11:58)
[2017-06-16] MEDS ORDERED: DEMEROL INJ IM ONE (11:58)
[2017-06-16] MEDS ORDERED: NS 500 ML IV 500 ML IV ONE (12:19)
[2017-06-16] MEDS ORDERED: NS 250 ML IV 250 ML IV ONE (12:19)
[2017-06-16] MEDS ORDERED: ZITHROMAX INJ 500 MG VIAL IV ONE (12:20)
[2017-06-16 12:30] LABS: BASOPHILS # (AUTO) 0.1 X10^3/uL (0.0-0.1); EOSINOPHILS # (AUTO) 0.1 x10^3/uL (0.0-0.2); EOSINOPHILS % (AUTO) 2.3 % (0.9-2.9); HEMATOCRIT 40.1 % (36.0-47.0); HEMOGLOBIN 13.9 g/dL (12.0-16.0); LYMPHOCYTES # (AUTO) 2.9 X10^3/uL (1.3-2.9); LYMPHOCYTES % (AUTO) 46.8 % (21.0-51.0); MEAN CORPUSCULAR HEMOGLOBIN 32.3 pg (27.0-34.0); MEAN CORPUSCULAR HGB CONC 34.7 g/dL (33.0-35.0); MEAN PLATELET VOLUME 8.6 fL (7.4-11.0); MONOCYTES # (AUTO) 0.3 x10^3/uL (0.3-0.8); MONOCYTES % (AUTO) 5.4 % (0.0-13.0); NEUTROPHILS # (AUTO) 2.8 x10^3/uL (2.2-4.8); NEUTROPHILS % (AUTO) 44.5 % (42.0-75.0); PLATELET COUNT 214 X10^3/uL (150.0-450.0); RED BLOOD COUNT 4.31 X10^6/uL (3.5-5.4); RED CELL DISTRIBUTION WIDTH 13.5 % (11.6-16.5); WHITE BLOOD COUNT 6.2 X10^3/uL (3.6-10.0)
--- NOTE | 2017-06-16 12:34 | RAD ---
Examination: Portable AP chest History: Headache Comparison reference: 04/07/2017 Findings: Continued upper normal heart size with surgical changes of sternotomy. A twin lead cardiac pacing device is present. The central pulmonary vessels are mildly congested. There is a right subcla vian injection port terminating in the SVC. There is no evidence for pneumothorax, pneumonia or pleur al effusion. Coronary artery calcification/arteriosclerosis identified. Impression: Stable appearance of chest. Mild vascular congestion. Injection port position as noted. C oronary artery arteriosclerosis. Reported By:
[2017-06-16] MEDS: ZITHROMAX INJ 500 MG VIAL 500 MG in D5W 250 ML IV 250 ML IV SCH (12:35)
[2017-06-16] MEDS ORDERED: NS 500 ML IV 500 ML IV PRN (12:37)
[2017-06-16] MEDS: COLACE CAP 100 MG PO SCH ×2 (12:39→20:13)
[2017-06-16 12:41] LABS: ALANINE AMINOTRANSFERASE 21 Units/L (12-78); ALBUMIN 3.5 g/dL (3.4-5.0); ALKALINE PHOSPHATASE 112 Units/L (46-116); ASPARTATE AMINO TRANSFERASE 17 Units/L (15-37); BLOOD UREA NITROGEN 13 mg/dL (7-18); CALCIUM 8.8 mg/dL (8.5-10.1); CARBON DIOXIDE 28.5 mmol/L (21-32); CHLORIDE 107 mmol/L (98-107); SODIUM 144 mmol/L (136-145); TOTAL PROTEIN 7.5 g/dL (6.4-8.2); eGFR BLACK RACES > 60 (>60); eGFR NON BLACK RACES > 60 (>60)
[2017-06-16] MEDS ORDERED: NICOTINE PATCH TD ONE (12:41)
[2017-06-16] MEDS: NICOTINE PATCH TD SCH (12:53)
[2017-06-16] MEDS ORDERED: DECADRON INJ PRESERVATIVE-FREE IM ONE (13:09)
[2017-06-16] MEDS ORDERED: NS 50 ML IV 50 ML IV ONE (13:10)
[2017-06-16] MEDS ORDERED: ATIVAN INJ 2 MG VIAL ONE (13:10)
[2017-06-16] MEDS ORDERED: ZOFRAN INJ 4 MG VIAL ONE (13:10)
[2017-06-16 13:16] LABS: ERYTHROCYTE SEDIMENTATION RATE 10 MM/HOUR (0-20)
--- NOTE | 2017-06-16 13:20 | DR.H&P ---
H&P - History & Physical for Day of: H&P Date: 06/16/17 - Chief Complaint Chief Complaint: headache with nausea & vomiting. "black out" spells - Allergies Allergies/Adverse Reactions: Allergies Allergy/AdvReac Type Severity Reaction Status Date / Time diphenhydramine Allergy Verified 04/07/17 18:06 [From Benadryl] temazepam Allergy Verified 04/07/17 18:06 - History of Present Illness History of Present Illness: 57 W[address] ADM[address]ED FROM [address] LOPEZ OFFICE AFTER PRESENTING CO INTRACTABLE PALAFOX. PT RECENTLY HAD CT BRAIN AND CAROTID ARTERY STUDIES IN . PT STATES SHE IS HAVING BLACK OUT SPELLS WITH MEMORY LOSS. PT COMPLAINS INCREASED CHEST CONGESTION, TOOK ZPAK AND MEDROL DOSE PACK WITHOUT RESOLUTION. PLAN TO ADMIT FOR EVALUATION AND TREATMENT OF INTRACTABLE PALAFOX, CHEST CONGESTION. PLAN TO CONSULT NEUROLOGIST, EEG, MRI HEAD. PAIN AND NAUSEA CONTROL, IV ATBX, RESP THERAPY - Past Medical History Past Medical History: Anxiety, CHF, COPD, Coronary Artery Disease, Depression, [place] Additional Medical History: Hx of opioid dependence per medical records and recent admission for opioid and benzodiazepine detox. Multiple and frequent hospital admissions for chest pain which have had negative serial cardiac enzymes. Hx of venous insufficiency. History of chronic neck and low back pain. - Past Surgical History Surgical History: Angioplasty/Stents, CABG/Valve Surgery, Ortho Surgery - Family History Family Medical History: [place], Coronary Artery Disease, Hypertension - Social History Does patient currently use any type of tobacco product: Yes Have you used tobacco products in the last 12 months: Yes Type of Tobacco Use: Cigarettes Alcohol Use: None Drug Use: None - Review of Systems Constitutional: Weakness Eyes: No Symptoms Reported Respiratory: Cough, Wheezing Cardiovascular: No Symptoms Reported, Light Headedness Gastrointestinal: Nausea. denies: Abdominal Pain, Diarrhea Genitourinary: No Symptoms Reported Musculoskeletal: Back Pain, Neck Pain Skin: No Symptoms Reported Neurological: Weakness, Other (REPORTS BLACKOUT SPELLS) - Physical Exam Vital Signs: Blood Pressure [Left Arm] 145/72 Blood Pressure [Right Arm] 115/58 Blood Pressure 145/72 Oriented: Normal Eyes: Normal Ear: Normal Nose: Normal Throat: Normal Respiratory: Rhonchi Throughout, RLL Diminished, LLL Diminished Cardiovascular: Normal : Normal Auscultation: Bowel Sounds: Normal Palpation: Normal Tenderness: Normal Skin: Decreased Turgur Musculoskeletal: Knee, Back:Lumbar Psychiatric: Anxiety Affect: Anxious Speech Pattern: Clear, Appropriate - Assessment/Plan (1) Intractable headache Status: Acute Plan: ADMIT, NEURO CONSULT. PAIN AND NAUSEA CONTROL, EEG, MRI BRAIN. CXR ON ADMISSION, BP CONTROL, RESUME BP MEDICATIONS. PHARMACY CONSULT MEDICATION EVALUATION. ADMISSIN LABS (2) Acute bronchitis Status: Acute Plan: RESP CONSULT, CXR ON ADMISSION. IV ROCEPHIN IV DAILY (3) Blackout spell Status: Acute (4) COPD (chronic obstructive pulmonary disease) Status: Chronic (5) Cardiac defibrillator in place Status: Chronic (6) GERD (gastroesophageal reflux disease) Status: Chronic (7) HTN (hypertension) Status: Chronic
--- NOTE | 2017-06-16 13:20 | DR.CONSULT ---
Consult - Consultation for Day of: Date: 06/16/17 - Chief Complaint Chief Complaint: Headaches/Syncope, possible seizures. - Allergies Allergies/Adverse Reactions: Allergies Allergy/AdvReac Type Severity Reaction Status Date / Time diphenhydramine Allergy Verified 04/07/17 18:06 [From Benadryl] temazepam Allergy Verified 04/07/17 18:06 - History of Present Illness History of Present Illness: 57-year-old female patient was seen and examined because of daily headaches for the past 3 months. These are occurring without any prior warning on the left side of her head. These have strong throbbing characteristics associated with nausea. The headaches last all day long. Patient denies any associated light or sound sensitivity. Patient has not been seen by any neurologist for her headaches. Patient says that she had a stroke several years ago when she was flown to [place]. She had acute onset of left- sided weakness and difficulty with her speech. In addition to this patient also has been passing out for the past couple of months. She has passed out 3 times. According to the witness patient first stares into space followed by passing out. These are not associated with any convulsive activity, tongue biting, incontinence of bowel or bladder. However after these spells are over she is tired and fatigued. Patient has no prior history of seizure disorder. Her past medical history is significant for coronary artery disease, coronary artery bypass graft, cardiac stenting, cigarette smoking. NEUROLOGICAL EXAMINATION : Cognitive status: Patient is awake alert oriented in time place and person. Speech: Speech is fluent, naming is intact, comprehension is also intact. Patient has no paraphasic errors. Cranial nerve examination : Second cranial nerve: Visual call are intact on confrontation. Third fourth and sixth cranial nerve: Extraocular movements are full without any nystagmus. Pupils are 3.5 mm in size around equal and reactive to light. Fifth cranial nerve: Facial sensations are intact bilaterally. Seventh cranial nerve: Facial symmetry is intact bilaterally. Eighth cranial nerve: Hearing is intact bilaterally. Ninth and 10th cranial nerve: Palate is symmetrical bilaterally. 11th cranial nerve: Shoulder shrug is equal and symmetrical bilaterally. 12 cranial nerve: Tongue is in midline. Coordination: Finger to nose rapid alternating movements are intact. Gait: WAS NOT TESTED. Motor system examination: Tone is normal. Strength is 5 over 5 proximally as well as distally in upper and lower extremities. Deep tendon reflexes are +1 equal and symmetrical in upper and lower extremities. Plantars are flexor bilaterally. Sensory system examination: Patient has equal and symmetrical touch, temperature , pinprick sensation distally and proximally in upper and lower extremities. - Past Medical History Past Medical History: Anxiety, CHF, COPD, Coronary Artery Disease, Depression, [place] Additional Medical History: Hx of opioid dependence per medical records and recent admission for opioid and benzodiazepine detox. Multiple and frequent hospital admissions for chest pain which have had negative serial cardiac enzymes. Hx of venous insufficiency. History of chronic neck and low back pain. - Past Surgical History Surgical History: Angioplasty/Stents, CABG/Valve Surgery, Ortho Surgery - Family History Family Medical History: [place], Coronary Artery Disease, Hypertension - Social History Does patient currently use any type of tobacco product: Yes Have you used tobacco products in the last 12 months: Yes Type of Tobacco Use: Cigarettes Alcohol Use: None Drug Use: None - Review of Systems Cardiovascular: See HPI Musculoskeletal: See HPI Neurological: See HPI - Physical Exam Vital Signs: Blood Pressure [Left Arm] 145/72 Blood Pressure [Right Arm] 115/58 Blood Pressure 145/72 Oriented: Normal Eyes: Normal Ear: Normal Nose: Normal Throat: Normal Respiratory: Clear Throughout Cardiovascular: Normal : Normal Auscultation: Bowel Sounds: Normal Palpation: Normal Tenderness: Normal Skin: Normal Musculoskeletal: Normal Psychiatric: Normal Mood Description: Calm Affect: Normal Speech Pattern: Slurred (Patient was seen and examined because of recent onset of headaches as described in H&P. These have strong migrainous characteristics. Patient also has history of 3 episodes in the recent months during which she stares into space followed by loss of consciousness. These are not associated with any convulsive activity, tongue biting, incontinence of bowel or bladder. However was these spells are over she is tired and fatigued. There is a possibility that these could be seizures. I'm recommending EEG MRI of the brain I'm recommending titration on Topamax starting the 25 mg twice a day. This could be further increased weekly by 25 mg twice a day until the target dose of 75 200 mg twice a day. To abort her headaches I'm recommending naproxen 250 mg half a tablet 3 times a day in combination with 12.5 mg of Phenergan as needed we will follow up.)
[2017-06-16] MEDS ORDERED: XOPENEX 1.25 MG/3 ML NEBULE NEB PRN (13:49)
[2017-06-16] MEDS ORDERED: PHARMACY CONSULT - DOSE _____ XX SCH (14:00)
[2017-06-16] MEDS: LASIX IVP SCH ×2 (14:47→20:13)
[2017-06-16] MEDS: PERCOCET TAB 5/325 MG PO PRN ×2 (17:26→23:20)
[2017-06-16] MEDS ORDERED: NAPROSYN PO PRN (18:14)
[2017-06-16] MEDS ORDERED: PHENERGAN TAB 25 MG PO PRN (18:19)
[2017-06-16] MEDS: TOPAMAX PO SCH ×2 (20:13→21:41)
[2017-06-17] MEDS: PERCOCET TAB 5/325 MG PO PRN ×2 (05:13→10:26)
[2017-06-17 05:59] LABS: BASOPHILS # (AUTO) 0.1 X10^3/uL (0.0-0.1); BASOPHILS % (AUTO) 0.7 % (0.2-1.0); EOSINOPHILS % (AUTO) 0.1 % (0.9-2.9); HEMATOCRIT 39.7 % (36.0-47.0); HEMOGLOBIN 13.6 g/dL (12.0-16.0); LYMPHOCYTES # (AUTO) 2.1 X10^3/uL (1.3-2.9); LYMPHOCYTES % (AUTO) 20.1 % (21.0-51.0); MEAN CORPUSCULAR HEMOGLOBIN 32.2 pg (27.0-34.0); MEAN CORPUSCULAR HGB CONC 34.3 g/dL (33.0-35.0); MEAN CORPUSCULAR VOLUME 93.8 fL (80.0-100.0); MONOCYTES # (AUTO) 0.6 x10^3/uL (0.3-0.8); MONOCYTES % (AUTO) 5.3 % (0.0-13.0); NEUTROPHILS # (AUTO) 7.7 x10^3/uL (2.2-4.8); NEUTROPHILS % (AUTO) 73.8 % (42.0-75.0); PLATELET COUNT 232 X10^3/uL (150.0-450.0); RED BLOOD COUNT 4.24 X10^6/uL (3.5-5.4); WHITE BLOOD COUNT 10.5 X10^3/uL (3.6-10.0)
[2017-06-17 06:14] LABS: ALANINE AMINOTRANSFERASE 21 Units/L (12-78); ALBUMIN 3.4 g/dL (3.4-5.0); ALKALINE PHOSPHATASE 110 Units/L (46-116); ASPARTATE AMINO TRANSFERASE 16 Units/L (15-37); BLOOD UREA NITROGEN 15 mg/dL (7-18); CALCIUM 9.1 mg/dL (8.5-10.1); CARBON DIOXIDE 28.2 mmol/L (21-32); CHLORIDE 102 mmol/L (98-107); CHOL/HDL RATIO 6.1 (0.0-5.0); CHOLESTEROL 232 mg/dL (0-200); COR NA(FOR HYPERGLY) 145 mmol/L (136-145); CREATININE 1.41 mg/dL (0.55-1.02); HDL CHOLESTEROL 38 mg/dL (40-60); SODIUM 142 mmol/L (136-145); TOTAL PROTEIN 7.4 g/dL (6.4-8.2); TRIGLYCERIDES 177 mg/dL (0-150); eGFR BLACK RACES 50 (>60); eGFR NON BLACK RACES 41 (>60)
[2017-06-17] MEDS ORDERED: PATIENT'S HOME MEDICATION (Alprazolam [Alprazolam] 1 TAB) PO PRN (09:13)
[2017-06-17] MEDS ORDERED: PHENERGAN TAB 25 MG PO PRN (09:13)
[2017-06-17] MEDS: TOPAMAX PO SCH (09:20)
[2017-06-17] MEDS: NICOTINE PATCH TD SCH (09:20)
[2017-06-17] MEDS: ZITHROMAX INJ 500 MG VIAL 500 MG in D5W 250 ML IV 250 ML IV SCH (09:20)
[2017-06-17] MEDS ORDERED: XANAX ONE (10:11)
[2017-06-17] MEDS ORDERED: DEMEROL INJ ONE (12:59)
[2017-06-17 13:10] VITALS: BP 119/76
[2017-06-17] MEDS ORDERED: DEMEROL INJ IM ONE (13:12)
[2017-06-17] MEDS ORDERED: HEP LOCK NEONATE 10 UNITS/1 ML 5ML IVF PRN (13:13)
[2017-06-17] MEDS ORDERED: ZANAFLEX PO SCH (14:00)
[2017-06-17] MEDS ORDERED: XANAX PO SCH (14:00)
[2017-06-17] MEDS ORDERED: GABAPENTIN 1200 MG PO SCH (14:00)
[2017-06-17] MEDS ORDERED: PATIENT'S HOME MEDICATION (Tizanidine Hcl [Zanaflex 4 Mg] 1 TAB) PO SCH (14:00)
[2017-06-17] MEDS ORDERED: LIPITOR TAB 40 MG PO SCH (21:00)
[2017-06-17] MEDS ORDERED: QUETIAPINE FUMARATE 300 MG PO SCH (21:00)
[2017-06-17] MEDS ORDERED: SEROquel TAB 100 MG PO SCH (21:00)
[2017-06-17] MEDS ORDERED: PATIENT'S HOME MEDICATION (Atorvastatin Calcium [Lipitor] 1 TAB) PO SCH (21:00)
[2017-06-18] MEDS ORDERED: ASPIRIN PO SCH (09:00)
[2017-06-18] MEDS ORDERED: MICRO K EXTEN CAP 10 MEQ PO SCH (09:00)
[2017-06-18] MEDS ORDERED: COREG TAB 3.125 MG PO SCH (09:00)
[2017-06-18] MEDS ORDERED: LASIX PO SCH (09:00)
[2017-06-18] MEDS ORDERED: NEURONTIN TAB 600 MG PO SCH (09:00)
[2017-06-18] MEDS ORDERED: PROTONIX TAB 40 MG PO SCH (09:00)
== END 2017-06-17 13:14 | disposition home or self-care (01) ==
LOC: UNDOADMOB 10:49 → ICU 10:49
PROVIDERS: ADMIT Internal Medicine; ATTEND Internal Medicine
DX: R51 Headache (principal); R55 Syncope and collapse; R11.2 Nausea with vomiting, unspecified; I25.10 Atherosclerotic heart disease of native coronary artery without angina pectoris; J20.8 Acute bronchitis due to other specified organisms; J44.9 Chronic obstructive pulmonary disease, unspecified; Z95.1 Presence of aortocoronary bypass graft; K21.9 Gastro-esophageal reflux disease without esophagitis; I10 Essential (primary) hypertension; I50.9 Heart failure, unspecified; F33.8 Other recurrent depressive disorders; F41.8 Other specified anxiety disorders; M19.90 Unspecified osteoarthritis, unspecified site; J32.8 Other chronic sinusitis
CPT/HCPCS: 36415; 71010; 80053; 80061; 85025; 85652; 86140; 95819; A4222; G0378; J0456; J1100; J1940; J2060; J2175; J2405

== ENCOUNTER → 2017-08-12 | Outpatient (CLI) | payer OTHER ==
[2017-08-12 12:32] LABS: BASOPHILS # (AUTO) 0.1 X10^3/uL (0.0-0.1); EOSINOPHILS # (AUTO) 0.1 x10^3/uL (0.0-0.2); EOSINOPHILS % (AUTO) 1.5 % (0.9-2.9); HEMATOCRIT 39.6 % (36.0-47.0); HEMOGLOBIN 13.7 g/dL (12.0-16.0); LYMPHOCYTES # (AUTO) 2.4 X10^3/uL (1.3-2.9); LYMPHOCYTES % (AUTO) 33.1 % (21.0-51.0); MEAN CORPUSCULAR HEMOGLOBIN 32.4 pg (27.0-34.0); MEAN CORPUSCULAR HGB CONC 34.7 g/dL (33.0-35.0); MEAN CORPUSCULAR VOLUME 93.5 fL (80.0-100.0); MEAN PLATELET VOLUME 8.6 fL (7.4-11.0); MONOCYTES # (AUTO) 0.3 x10^3/uL (0.3-0.8); MONOCYTES % (AUTO) 4.6 % (0.0-13.0); NEUTROPHILS # (AUTO) 4.3 x10^3/uL (2.2-4.8); NEUTROPHILS % (AUTO) 59.8 % (42.0-75.0); PLATELET COUNT 176 X10^3/uL (150.0-450.0); RED BLOOD COUNT 4.24 X10^6/uL (3.5-5.4); RED CELL DISTRIBUTION WIDTH 14.6 % (11.6-16.5); WHITE BLOOD COUNT 7.1 X10^3/uL (3.6-10.0)
[2017-08-12 12:59] LABS: ALANINE AMINOTRANSFERASE 31 Units/L (12-78); ALBUMIN 3.6 g/dL (3.4-5.0); ALKALINE PHOSPHATASE 128 Units/L (46-116); ASPARTATE AMINO TRANSFERASE 21 Units/L (15-37); BLOOD UREA NITROGEN 12 mg/dL (7-18); CALCIUM 8.9 mg/dL (8.5-10.1); CARBON DIOXIDE 28.9 mmol/L (21-32); CHLORIDE 103 mmol/L (98-107); COR NA(FOR HYPERGLY) 141 mmol/L (136-145); CREATININE 1.14 mg/dL (0.55-1.02); FREE T4 (FREE THYROXINE) 0.81 ng/dL (0.76-1.46); SODIUM 140 mmol/L (136-145); TOTAL PROTEIN 7.8 g/dL (6.4-8.2); TSH (3RD GENERATION) 2.959 uIU/mL (0.358-3.74); eGFR BLACK RACES > 60 (>60); eGFR NON BLACK RACES 53 (>60)
== END ==
LOC: LAB 12:07
PROVIDERS: ATTEND Nurse Practitioner Family
DX: I25.10 Atherosclerotic heart disease of native coronary artery without angina pectoris (principal); Z79.899 Other long term (current) drug therapy
CPT/HCPCS: 36415; 80053; 84439; 84443; 85025